=== PATIENT | female | born 1965 | race Caucasian/White ===

== ENCOUNTER → 2017-01-10 | Outpatient (CLI) | payer BC ==
[~2017-01-10] MED LIST: BUPRTAB PO; BUTA1CAP PO; CETI10TA84 PO; DIVA500T5 PO; DOXY100C76 PO; ESTR0.02 TD; LSN5 PO; MDRDP21 PO; MULT1CHW32 PO; ONDA4TAB10 SL; POTA1080 PO; TOPI50TA16 PO; TPRSR/25 PO
[2017-01-10 17:43] LABS: BASO % 0.9 %; BASO ABS # 0.06 K/uL (0-0.2); COMPLETE YES; EOS % 2.4 %; HEMATOCRIT 41.8 % (37-47); IG% 0.5 %; LYMPH % 35.3 %; LYMPH ABS # 2.24 K/uL (1.2-3.4); MEAN CELL VOLUME 94.1 fL (80-100); MEAN CORPUSCULAR HEMOGLOBIN 31.8 pg (25-34); MEAN CORPUSCULAR HGB CONC 33.7 g/dl (32-36); MEAN PLATELET VOLUME 11.2 fL (7.4-10.4); MONO % 12.1 %; NEUT % 48.8 %; PLATELET COUNT 173 K/uL (130-400); RED BLOOD COUNT 4.44 M/uL (4.2-5.4); WHITE BLOOD COUNT 6.34 K/uL (4.8-10.8)
[2017-01-10 17:58] LABS: ALT/SGPT 21 U/L (12-78); BLOOD UREA NITROGEN 15 mg/dl (7-18); BUN/CREATININE RATIO 19.6 (10-20); CALCIUM 9.5 mg/dl (8.5-10.1); CARBON DIOXIDE 29 mmol/L (21-32); CHLORIDE 103 mmol/L (98-107); CHOLESTEROL 174 mg/dl (0-200); CREATININE 0.78 mg/dl (0.60-1.20); GLUCOSE 77 mg/dl (70-99); POTASSIUM 4.8 mmol/L (3.5-5.1); SODIUM 141 mmol/L (136-145)
[2017-01-10 18:08] LABS: ALB/GLOB RATIO 1.4 (0.9-2); ALKALINE PHOSPHATASE 71 U/L (45-117); AST/SGOT 16 U/L (15-37); CHOLESTEROL/HDL RATIO 2.3; HDL CHOLESTEROL 77 mg/dl; LDL CHOLESTEROL CALCULATED 87 mg/dl; TRIGLYCERIDES 49 mg/dl (0-150); VERY LOW DENSITY LIPOPROT CALC 10 mg/dl
== END | disposition home or self-care (01) ==
LOC: C.LABBFT 15:08
PROVIDERS: ATTEND Internal Medicine
DX: I42.9 Cardiomyopathy, unspecified (principal)

== ENCOUNTER → 2017-01-13 | Outpatient (CLI) | payer BC | END | disposition home or self-care (01) | LOC: C.PAPS 10:43 | PROVIDERS: ATTEND Obstetrics & Gynecology | DX: Z01.419 Encounter for gynecological examination (general) (routine) without abnormal findings (principal) ==

== ENCOUNTER 2017-05-08 07:06 | Emergency (ER) | payer BC ==
[~2017-05-08] VITALS: Ht 157.5 cm; Wt 76.4 kg
[~2017-05-08 07:06] MED LIST changes: -BUTA1CAP PO; -CETI10TA84 PO; -DIVA500T5 PO; -DOXY100C76 PO; -MDRDP21 PO; -ONDA4TAB10 SL
[2017-05-08 07:10] VITALS: O2SAT 100
[2017-05-08 07:11] VITALS: TEMP 36.7; Ht 157.5 cm; Wt 76.4 kg
[2017-05-08] MEDS ORDERED: MDRDP21 PO (07:43)
[2017-05-08] MEDS ORDERED: CETI10TA84 PO (07:44)
[2017-05-08] MEDS ORDERED: BUTA1CAP PO (07:47)
[2017-05-08] MEDS ORDERED: DIVA500T5 PO (07:47)
[2017-05-08] MEDS ORDERED: ONDANSETRON INJ 2 MG/ML 2 ML VIAL IV STA (07:53)
[2017-05-08] MEDS ORDERED: CEFTRIAXONE SOD INJ 1 GM ADDVIAL IV STA (07:53)
[2017-05-08] MEDS ORDERED: SODIUM CHLORIDE 0.9% 1000ML 1,000 ML IV STA (07:53)
[2017-05-08] MEDS ORDERED: KETOROLAC TROMETHAMINE 30 MG/ML VIAL IV STA (07:53)
[2017-05-08] MEDS ORDERED: SODIUM CHLORIDE 0.9% 1000ML 2,000 ML IV STA (07:53)
[2017-05-08 08:07] LABS: BASO % 0.3 %; BASO ABS # 0.03 K/uL (0-0.2); COMPLETE YES; EOS % 1.4 %; HEMATOCRIT 45.1 % (37-47); IG% 0.2 %; LYMPH % 21.2 %; LYMPH ABS # 1.88 K/uL (1.2-3.4); MEAN CELL VOLUME 92.8 fL (80-100); MEAN CORPUSCULAR HEMOGLOBIN 31.9 pg (25-34); MEAN CORPUSCULAR HGB CONC 34.4 g/dl (32-36); MEAN PLATELET VOLUME 9.8 fL (7.4-10.4); MONO % 12.3 %; NEUT % 64.6 %; PLATELET COUNT 188 K/uL (130-400); RED BLOOD COUNT 4.86 M/uL (4.2-5.4); WHITE BLOOD COUNT 8.87 K/uL (4.8-10.8)
[2017-05-08 08:14] LABS: PROTHROMBIN TIME (PATIENT) 10.8 SECONDS (9.0-12.0)
--- NOTE | 2017-05-08 08:34 | DIAGNOSTIC IMAGING REPORT ---
CT HEAD WITHOUT CONTRAST (CT) CLINICAL HISTORY: HEADACHE x6 days, L BELLS PALSY LEFT FACIAL WEAKNESS. COMPARISON STUDY: 09/12/2008 TECHNIQUE: Axial CT of the brain is performed from the vertex to the skull base. IV contrast was not administered for this examination. CT DOSE: 644.98 mGy.cm FINDINGS: No intra or extra-axial mass lesions are visualized. There is no CT evidence of acute cortical infarction. There is no evidence of midline shift. There is no acute hemorrhage. No calvarial fractures are visualized. There are minimal white matter hypodensities likely on a small vessel basis. There is no evidence of pathologic ventricular dilatation. There is no evidence of acute sinusitis IMPRESSION: No acute intracranial findings Electronically signed by: Ivan Ramos M.D. 05/08/2017 8:33 AM Dictated Date/Time: 05/08/2017 8:26 AM
[2017-05-08 08:36] LABS: THYROID STIMULATING HORMONE 0.544 uIu/ml (0.300-4.500)
[2017-05-08 08:37] LABS: ALB/GLOB RATIO 0.9 (0.9-2); BUN/CREATININE RATIO 8.7 (10-20); CREATININE 0.97 mg/dl (0.60-1.20)
[2017-05-08 08:43] LABS: POTASSIUM 3.5 mmol/L (3.5-5.1)
[2017-05-08 08:59] LABS: LYME DISEASE AB IGG NEG (NEG)
[2017-05-08 09:05] LABS: LYME DISEASE AB IGM EQUIVOCAL (NEG)
[2017-05-08] MEDS ORDERED: PROCHLORPERAZINE 5 MG/ML 2 ML VIAL IV STA (09:39)
[2017-05-08] MEDS ORDERED: DiphenhydrAMINE HCL 50 MG/ML VIAL IV STA (09:39)
[2017-05-08] MEDS ORDERED: FENTANYL CITRATE INJ 50 MCG/1 ML 2 ML VIAL IV STA (09:39)
[2017-05-08] MEDS ORDERED: DOXY100C76 PO (10:58)
[2017-05-08] MEDS ORDERED: ONDA4TAB10 SL (11:00)
--- NOTE | 2017-05-08 11:00 | EMERGENCY ROOM VISIT NOTE ---
History First contact with patient: 07:15 Chief Complaint: NEURO SYMPTOMS Stated Complaint: LEFT SIDE OF FACE IS NUMB,ACHE ALL OVER,MARTINEZ X 6DAYS Nursing Triage Summary: Patient reports frontal headache for approx 6 days noticed yesterday that her face is drooping on the left side. Patient also c/o body aches for a couple days and red area on top of the right foot. History of Present Illness Patient is a 52-year-old white female with past medical history significant for hypertension, depression and migraines who presents emergency department for evaluation of a headache 1 week, with associated left-sided facial weakness times one day. Patient reports that she developed a stabbing left frontal headache about 6 days ago. She had associated nausea and vomiting, and thought that it was her typical migraine. She used her usual medications including Topamax, ibuprofen, and sinus medications, but they did not provide her with any relief. She called her neurologist and was started on a tapering course of steroids, again which did not change her headache. She states the headache became more generalized, and she noted generalized body and muscle aches, continued nausea, and joint pain. She had chills, felt generally weak, but denied any fever. She noticed yesterday that she could not keep her mouth closed to rinse with mouthwash and that it was squirting out of the left side of her mouth. She then also noticed weakness in the left side of her face, and states that it feels numb. She has a sensation of fullness in the left throat, but denies any difficulty breathing or swallowing. She has had difficulty eating and drinking normally due to the weakness in her face. Patient also notes that she has had a red, slightly tender rash on the dorsum of her right foot for about a week. She is outside frequently playing with her dogs, and participated in an exercise class, but denies any specific injury or trauma. She saw her PCP last week who thought the area was a bruise. She has been able to walk and bear weight. She denies any posterior neck pain or stiffness. No abdominal pain or diarrhea. No urinary symptoms. Review of Systems Review of systems as per HPI. All other systems reviewed were negative. 10 systems reviewed. Past Medical/Surgical History Medical Problems: (1) Calculus Of Kidney (2) Depression (3) Hydronephrosis (4) Hypertension Nos (5) LBBB (left bundle branch block) (6) Migraine Unspecified W/O Intract Mgrn W/O Status Migrainosus (7) Renal colic (8) Ureteral stone with hydronephrosis Electronic medical records are reviewed and summarized as above/below. See Problem List. Social History Smoking Status: Never Smoker Alcohol Use: none Drug Use: none Marital Status: Housing Status: lives with significant other Occupation Status: employed Current/Historical Medications Scheduled Bupropion Hcl (Wellbutrin Xl), 150 MG PO QAM Wrhgrlpmse-Fwucqagwsbzpv-Xixuz (Zebutal 50-325-40 mg), 1 CAP PO UD Cetirizine (Zyrtec), 10 MG PO DAILY Divalproex Sodium (Depakote Delay Rel), 500 MG PO BID Doxycycline Monohydrate (Monodox), 100 MG PO BID Estradiol (Estradiol Transdermal System), 1 PATCH TD WK Lisinopril (Lisinopril), 5 MG PO HS Methylprednisolone (Methylprednisolone Dose P), 4 MG PO UD Metoprolol Succinate (Metoprolol Succinate ER), 25 MG PO HS Scheduled PRN Ondasetron Odt (Zofran Odt), 4 MG SL Q6H PRN for Nausea or Vomiting Allergies Coded Allergies: Ciprofloxacin (Verified Allergy, Unknown, REDDENED/ RASH AT IV SITE, ) Physical Exam Vital Signs Date Time Temp Pulse Resp B/P (MAP) Pulse Ox O2 Delivery O2 Flow Rate FiO2 05/08/17 11:48 79 17 121/74 98 05/08/17 11:00 56 05/08/17 10:21 61 15 128/85 93 Room Air 05/08/17 08:22 65 20 129/81 100 Room Air 05/08/17 07:28 71 05/08/17 07:11 36.7 81 18 151/83 100 Room Air 05/08/17 07:10 100 Room Air Physical Exam CONSTITUTIONAL: Patient is a well-appearing 52-year-old white female who is awake and alert and in no acute distress. HEENT: Normocephalic, atraumatic. Pupils equal, round, reactive to light and accommodation. EOMs intact without nystagmus. Sclera are anicteric.Tympanic membranes intact, with normal landmarks. External canals are clear. No hemotympanum or Beal sign. Oral and nasopharynx are clear. No CSF rhinorrhea. Mucous membranes are moist. NECK: Supple, nontender, no lymphadenopathy. Full range of motion. HEART: Regular rate and rhythm, with normal S1 and S2, no murmur or gallop or rub is heard. LUNGS: Breath sounds equal and clear to auscultation without wheezes, rales, or rhonchi heard. ABDOMEN: Bowel sounds are present. Abdomen is soft, nontender and nondistended. SKIN: Examination of the dorsum of the right foot show a circular, erythematous rash, nonblanching, extending into the third and fourth toes which are slightly swollen. It is slightly warm to the touch, not overtly cellulitic. No lymphangitic streaking. No fluctuance appreciated. EXTREMITIES: No cyanosis, edema, joint tenderness or swelling. No deformity. NEUROLOGICAL: Alert and oriented x4. Cranial nerves 2 through 6, 8 through 12, sensation and strength grossly intact. She has left-sided cranial nerve VII defect, she is able to close the eye, but cannot keep it closed against resisting,, raise her forehead, has loss of the nasolabial crease on the left. She reports diminished sensation to light touch over the left side of the face. Gait is normal. Patient is able to toe, heel and tandem walk without difficulty. Negative Romberg, and pronator drift. Finger to nose, finger to finger and rapid alternating movements are intact. Immediate, recent and remote memories are intact. Concentration is normal. Medical Decision & Procedures ER Provider Diagnostic Interpretation: CT HEAD WITHOUT CONTRAST (CT) CLINICAL HISTORY: HEADACHE x6 days, L BELLS PALSY LEFT FACIAL WEAKNESS. COMPARISON STUDY: 09/12/2008 TECHNIQUE: Axial CT of the brain is performed from the vertex to the skull base. IV contrast was not administered for this examination. CT DOSE: 644.98 mGy.cm FINDINGS: No intra or extra-axial mass lesions are visualized. There is no CT evidence of acute cortical infarction. There is no evidence of midline shift. There is no acute hemorrhage. No calvarial fractures are visualized. There are minimal white matter hypodensities likely on a small vessel basis. There is no evidence of pathologic ventricular dilatation. There is no evidence of acute sinusitis IMPRESSION: No acute intracranial findings Laboratory Results 05/08/17 07:35 Red Blood Count 4.86, Mean Corpuscular Volume 92.8, Mean Corpuscular Hemoglobin 31.9, Mean Corpuscular Hemoglobin Concent 34.4, Mean Platelet Volume 9.8, Neutrophils (%) (Auto) 64.6, Lymphocytes (%) (Auto) 21.2, Monocytes (%) (Auto) 12.3, Eosinophils (%) (Auto) 1.4, Basophils (%) (Auto) 0.3, Neutrophils # (Auto ) 5.73, Lymphocytes # (Auto) 1.88, Monocytes # (Auto) 1.09, Eosinophils # (Auto ) 0.12, Basophils # (Auto) 0.03 05/08/17 07:35 Test 05/08/17 07:21 05/08/17 07:35 Bedside Glucose 113 mg/dl (70-90) White Blood Count 8.87 K/uL (4.8-10.8) Red Blood Count 4.86 M/uL (4.2-5.4) Hemoglobin 15.5 g/dL (12.0-16.0) Hematocrit 45.1 % (37-47) Mean Corpuscular Volume 92.8 fL (80-100) Mean Corpuscular Hemoglobin 31.9 pg (25-34) Mean Corpuscular Hemoglobin Concent 34.4 g/dl (32-36) Platelet Count 188 K/uL (130-400) Mean Platelet Volume 9.8 fL (7.4-10.4) Neutrophils (%) (Auto) 64.6 % Lymphocytes (%) (Auto) 21.2 % Monocytes (%) (Auto) 12.3 % Eosinophils (%) (Auto) 1.4 % Basophils (%) (Auto) 0.3 % Neutrophils # (Auto) 5.73 K/uL (1.4-6.5) Lymphocytes # (Auto) 1.88 K/uL (1.2-3.4) Monocytes # (Auto) 1.09 K/uL (0.11-0.59) Eosinophils # (Auto) 0.12 K/uL (0-0.5) Basophils # (Auto) 0.03 K/uL (0-0.2) RDW Standard Deviation 43.0 fL (36.4-46.3) RDW Coefficient of Variation 12.7 % (11.5-14.5) Immature Granulocyte % (Auto) 0.2 % Immature Granulocyte # (Auto) 0.02 K/uL (0.00-0.02) Prothrombin Time 10.8 SECONDS (9.0-12.0) Prothromb Time International Ratio 1.0 (0.9-1.1) Activated Partial Thromboplast Time 26.2 SECONDS (21.0-31.0) Partial Thromboplastin Ratio 1.0 Anion Gap 10.0 mmol/L (3-11) Est Creatinine Clear Calc Drug Dose 63.5 ml/min Estimated GFR () 76.7 Estimated GFR (Non- 66.2 BUN/Creatinine Ratio 8.7 (10-20) Calcium Level 9.0 mg/dl (8.5-10.1) Total Bilirubin 0.2 mg/dl (0.2-1) Aspartate Amino Transf (AST/SGOT) 13 U/L (15-37) Alanine Aminotransferase (ALT/SGPT) 31 U/L (12-78) Alkaline Phosphatase 71 U/L (45-117) Total Protein 7.0 gm/dl (6.4-8.2) Albumin 3.3 gm/dl (3.4-5.0) Globulin 3.7 gm/dl (2.5-4.0) Albumin/Globulin Ratio 0.9 (0.9-2) Lipase 152 U/L (73-393) Thyroid Stimulating Hormone (TSH) 0.544 uIu/ml (0.300-4.500) Lyme Disease IgG Antibody NEG (NEG) Medications Administered Medications (Trade) Dose Ordered Sig/Adilene Route Start Time Stop Time Status Last Admin Dose Admin Sodium Chloride 2,000 ml @ 999 mls/hr Q2H1M STAT IV 05/08/17 07:53 05/08/17 09:53 DC 05/08/17 08:09 999 MLS/HR Sodium Chloride 1,000 ml @ 250 mls/hr Q4H STAT IV 05/08/17 07:53 05/08/17 11:52 DC 05/08/17 08:52 250 MLS/HR Ketorolac Tromethamine (Toradol Inj) 30 mg NOW STAT IV 05/08/17 07:53 05/08/17 07:58 DC 05/08/17 08:07 30 MG Ondansetron HCl (Zofran Inj) 4 mg NOW STAT IV 05/08/17 07:53 05/08/17 07:58 DC 05/08/17 08:06 4 MG Ceftriaxone Sodium (Rocephin Inj) 1 gm NOW STAT IV 05/08/17 07:53 05/08/17 07:58 DC 05/08/17 08:08 1 GM Prochlorperazine Edisylate (Compazine Inj) 10 mg NOW STAT IV 05/08/17 09:39 05/08/17 09:40 DC 05/08/17 10:00 10 MG Diphenhydramine HCl (Benadryl Inj) 25 mg NOW STAT IV 05/08/17 09:39 05/08/17 09:40 DC 05/08/17 10:00 25 MG Fentanyl Citrate (Fentanyl Inj) 50 mcg NOW STAT IV 05/08/17 09:39 05/08/17 09:40 DC 05/08/17 10:01 50 MCG ECG Indication: weakness Rate (beats per minute): 69 Rhythm: normal sinus Findings: LBBB (chronic), no acute ischemic change, no ectopy Change: no significant change ED Course The patient was seen and assessed as above. Her old records were reviewed. History and physical exam were reviewed with attending physician and ED workup was agreed upon. IV lock was initiated and laboratory studies were collected. EKG was performed and was as noted above. She was hydrated with normal saline solution, and initially was medicated with Zofran 4 mg and Toradol 30 mg IV. Laboratory studies were performed including CBC with differential, coags, TSH, CMP and Lyme screen. The rash on her foot did appear consistent with an erythema migrans, and given her left facial nerve palsy and other generalized symptoms, I was suspicious for Lyme disease and therefore did treat her with Rocephin 1 g IV. Laboratory studies demonstrated a normal white count and H&H. No left shift or bandemia. Coags and electrolytes were within normal limits. Point of care BSG was 113. Lipase is not indicative of acute pancreatitis. TSH is indicative of a euthyroid state. Lyme IgG was negative, Lyme IgM is equivocal and Western blot is pending. Head CT was performed given the facial weakness, and was negative for any acute intracranial bleed, mass or process. The patient continued to complain of headache and nausea and was given fentanyl 50 g IV, Compazine 10 mg IV and Benadryl 25 mg IV with good relief of her symptoms. All laboratory and diagnostic imaging studies were reviewed with attending physician, and discussed with the patient and her at length. I suspect Lyme disease, with associated left seventh cranial nerve (Mcfadden's) palsy. Differential diagnoses also entertained included cellulitis, abscess, superficial thrombophlebitis, CVA/TIA, among others. The patient will be placed on doxycycline. Eye care was reviewed given the left-sided facial weakness. She was educated on the worrisome signs or symptoms for which she should return to the emergency department, and was advised to follow-up with her PCP in one week for recheck. Patient was discharged home in good condition her was driving. She rated her pain a 0/10 at discharge. Blood pressure screening : Patient was found to have normal blood pressure on screening and does not require follow-up. Medication reconciliation: I attest that I have personally reviewed the patient' s current medication list. Medical Decision See Emergency Department course. Impression Primary Impression: Left-sided Mcfadden's palsy Additional Impression: Erythema migrans (Lyme disease) Departure Information Prescriptions Ondasetron Odt (ZOFRAN ODT) 4 Mg Tab 4 MG SL Q6H Y for Nausea or Vomiting, #20 TAB Prov: Ivory Mclean PA 05/08/17 Doxycycline Monohydrate (Monodox) 100 Mg Cap 100 MG PO BID, #21 CAP Prov: Ivory Mclean PA 05/08/17 Referrals Donaldo Hsieh M.D. (PCP) Patient Instructions My [facility] Additional Instructions DO NOT drive, drink alcohol, operate machinery, or perform dangerous activities today. You were given medications in the ER that can affect your ability to safely function or operate a vehicle. Rest today in a quiet, peaceful, dark environment and get a full 8-10 hrs of sleep tonight. Avoid loud noises, smoke/smoking, alcohol, bright lights, stress, or physical exertion today to minimize the chance the headache may return. Continue current medications. Zofran(odansetron) tablets 4mg: Take one and allow it to dissolve in your mouth every four to six hours as needed for nausea or vomiting. Doxycycline 100mg: Take one pill twice daily for 21 days for your infection. Take with food, but avoid dairy. Avoid prolonged sun exposure since this medication makes you temporarily more susceptible to sunburns. All antibiotics can cause diarrhea. If this occurs and you feel worse or it does not resolve in 1-2 days follow up with your doctor or return to the Emergency Department as this could be signs of serious underlying problems. Any medication can cause an allergic reaction, stop the pills immediately and return to the ER for rash, hives, breathing difficulties, or swelling. Ibuprofen(Motrin, Advil) may be used for fever or pain. Use 600mg every six hours as needed. Take with food. Avoid using more than 2400mg in a 24 hour period. Do not use 2400mg per day for more than three consecutive days without physician direction. Prolonged inappropriate use can lead to stomach upset or ulcers. This is available over the counter and typically comes in 200mg tablets. (AND/OR) Acetaminophen(Tylenol) may be used for fever or pain. Use 1000mg every eight hours as needed. Avoid using more than 3000mg in a 24 hour period. This is available over the counter. Lubricating eye drops as needed. Apply lubricating eye ointment at bedtime and gently secure the eye closed with paper tape. Read all the package inserts or medication information paperwork provided. If you have any questions or concerns call your primary provider, pharmacist or the ER for assistance. Return to the ER for severe pain, persistent fevers, spreading redness, passing out, worsening headache, vision problems, neck stiffness/pain, vomiting, worsening of your condition, or as needed. Follow up with your primary physician in 2-3 days for a recheck of your current condition. Problem Qualifiers
[2017-05-08 11:48] VITALS: BP 121/74; PULSE 79; O2SAT 98
[2017-05-11 08:33] LABS: 18KDIGG BAND NONREACTIVE (NONREACTIVE); 23KDIGG BAND NONREACTIVE (NONREACTIVE); 23KDIGM BAND REACTIVE (NONREACTIVE); 28KDIGG BAND NONREACTIVE (NONREACTIVE); 30KDIGG BAND NONREACTIVE (NONREACTIVE); 39KDIGG BAND NONREACTIVE (NONREACTIVE); 39KDIGM BAND NONREACTIVE (NONREACTIVE); 41KDIGG BAND NONREACTIVE (NONREACTIVE); 41KDIGM BAND REACTIVE (NONREACTIVE); 45KDIGG BAND NONREACTIVE (NONREACTIVE); 58KDIGG BAND NONREACTIVE (NONREACTIVE); 66KDIGG BAND NONREACTIVE (NONREACTIVE); 93KDIGG BAND NONREACTIVE (NONREACTIVE)
== END 2017-05-08 11:50 | disposition home or self-care (01) ==
LOC: C.EDB 07:08 → C.EDA 11:50
DX: G51.0 Bell's palsy (principal); A69.20 Lyme disease, unspecified; F32.9 Major depressive disorder, single episode, unspecified; N13.30 Unspecified hydronephrosis; I10 Essential (primary) hypertension

== ENCOUNTER → 2017-06-02 | Outpatient (CLI) | payer BC ==
[~2017-06-02] MED LIST changes: +BUTA1CAP PO; +CETI10TA84 PO; +DIVA500T5 PO; +DOXY100C76 PO; +MDRDP21 PO; -MULT1CHW32 PO; +ONDA4TAB10 SL; -POTA1080 PO; -TOPI50TA16 PO
--- NOTE | 2017-06-02 14:25 | DIAGNOSTIC IMAGING REPORT ---
RIGHT FOOT MIN 3 VIEWS ROUTINE CLINICAL HISTORY: Right foot pain. Lyme disease. COMPARISON: None FINDINGS: Tarsometatarsal joints are intact. There is no acute fracture or suspicious lesion within the right foot. Lateral view demonstrates apparent soft tissue swelling. There is mild hallux valgus deformity. There is minimal joint space narrowing with osteophytosis of the right first metatarsophalangeal joint. There are few juxta-articular lucencies within the right first metatarsal head. These have sclerotic margins. No definite erosions are present. IMPRESSION: 1. 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 2. No acute fracture. Electronically signed by: Faisal Mccauley M.D. 06/02/2017 2:23 PM Dictated Date/Time: 06/02/2017 2:21 PM
== END | disposition home or self-care (01) ==
LOC: C.RAD 13:55
PROVIDERS: ATTEND Physician Assistant Medical
DX: A69.20 Lyme disease, unspecified (principal)

== ENCOUNTER → 2017-06-19 | Outpatient (CLI) | payer BC ==
--- NOTE | 2017-06-19 13:32 | DIAGNOSTIC IMAGING REPORT ---
BONE SCAN 3 PHASE LIMITED CLINICAL HISTORY: 52 years-old Female presenting with foot pain, concern for Lyme disease. TECHNIQUE: Planar anterior and posterior imaging of the feet was performed in the angiographic, blood pool, and 3 hour delayed phases after administration of radiotracer. Radiotracer: 27 mCi Tc-99m MDP. COMPARISON: Correlation made to plain radiographs of the right foot from 06/02/2017. FINDINGS: Increased radiotracer in the right forefoot on initial angiographic flow images. Blood pool phase demonstrates focal activity localizing to the heads of the third and fourth metatarsals and third and fourth toes. Delayed imaging demonstrates mild asymmetry of radiotracer uptake in the right foot diffusely without significant focality. IMPRESSION: 1. Overall asymmetric radiotracer uptake in the right foot, predominantly the forefoot, on angiographic and blood pool phases. This could represent cellulitis in the appropriate clinical setting. The absence of focal radiotracer uptake on delayed imaging is not consistent with osteomyelitis or septic arthritis. Electronically signed by: Tanmay España M.D. 06/19/2017 1:31 PM Dictated Date/Time: 06/19/2017 1:20 PM
== END | disposition home or self-care (01) ==
LOC: C.NUCL 09:41
PROVIDERS: ATTEND Physician Assistant Medical
DX: M79.671 Pain in right foot (principal); R93.7 Abnormal findings on diagnostic imaging of other parts of musculoskeletal system

== ENCOUNTER → 2017-06-21 | Outpatient (CLI) | payer BC ==
--- NOTE | 2017-06-21 18:45 | DIAGNOSTIC IMAGING REPORT ---
RIGHT LOWER EXTREMITY VENOUS DOPPLER HISTORY: PAIN AND SWELLING IN RIGHT LEG; R/O DVT Right COMPARISON STUDY: None. FINDINGS: There is normal compressibility, flow, and augmentation within the right lower extremity deep venous system. Dorsal subcutaneous edema within the foot. IMPRESSION: No DVT within the right lower extremity. Dorsal subcutaneous edema within the foot. Electronically signed by: Mitesh Ospina M.D. 06/21/2017 6:43 PM Dictated Date/Time: 06/21/2017 6:42 PM
== END | disposition home or self-care (01) ==
LOC: C.ULTR 17:22
PROVIDERS: ATTEND Physician Assistant Medical
DX: M79.89 Other specified soft tissue disorders (principal); R60.0 Localized edema

== ENCOUNTER → 2017-09-23 | Outpatient (CLI) | payer BC ==
[2017-09-23 11:57] LABS: BASO % 0.5 %; BASO ABS # 0.04 K/uL (0-0.2); COMPLETE YES; HEMATOCRIT 44.1 % (37-47); IG% 0.3 %; LYMPH % 33.1 %; LYMPH ABS # 2.43 K/uL (1.2-3.4); MEAN CELL VOLUME 92.5 fL (80-100); MEAN CORPUSCULAR HEMOGLOBIN 31.4 pg (25-34); MEAN PLATELET VOLUME 10.5 fL (7.4-10.4); MONO % 7.9 %; NEUT % 56.2 %; PLATELET COUNT 204 K/uL (130-400); RED BLOOD COUNT 4.77 M/uL (4.2-5.4); WHITE BLOOD COUNT 7.34 K/uL (4.8-10.8)
[2017-09-23 12:21] LABS: ALT/SGPT 21 U/L (12-78); AST/SGOT 13 U/L (15-37); BLOOD UREA NITROGEN 14 mg/dl (7-18); BUN/CREATININE RATIO 17.2 (10-20); CALCIUM 9.1 mg/dl (8.5-10.1); CARBON DIOXIDE 29 mmol/L (21-32); CHLORIDE 105 mmol/L (98-107); CREATININE 0.81 mg/dl (0.60-1.20); GLUCOSE 79 mg/dl (70-99); POTASSIUM 4.5 mmol/L (3.5-5.1); SODIUM 139 mmol/L (136-145)
[2017-09-23 12:24] LABS: ALB/GLOB RATIO 1.3 (0.9-2); ALKALINE PHOSPHATASE 100 U/L (45-117)
== END | disposition home or self-care (01) ==
LOC: C.LAB 10:02
PROVIDERS: ATTEND Physician Assistant
DX: G43.909 Migraine, unspecified, not intractable, without status migrainosus (principal)

== ENCOUNTER → 2017-11-13 | Outpatient (CLI) | payer BC ==
[~2017-11-13] MED LIST changes: -DOXY100C76 PO; -ONDA4TAB10 SL
== END | disposition home or self-care (01) ==
LOC: C.LABBFT 15:28
PROVIDERS: ATTEND Physician Assistant Medical
DX: R53.83 Other fatigue (principal)

== ENCOUNTER 2018-01-29 11:43 | Emergency (ER) | payer BC ==
[~2018-01-29] VITALS: Ht 157.5 cm; Wt 87.4 kg
[2018-01-29 12:01] VITALS: TEMP 36.6; Ht 157.5 cm; Wt 87.4 kg
[2018-01-29] MEDS ORDERED: ONDANSETRON INJ 2 MG/ML 2 ML VIAL IV STA (12:13)
[2018-01-29] MEDS ORDERED: SODIUM CHLORIDE 0.9% 1000ML 500 ML IV ONE (12:13)
[2018-01-29] MEDS ORDERED: MoRPHine SULFATE 4 MG/ML 1 ML CARP\\VIAL IV STA (12:41)
[2018-01-29 13:11] LABS: HEMATOCRIT 44.9 % (37-47); HEMOGLOBIN 15.5 g/dL (12.0-16.0); MEAN CELL VOLUME 90.5 fL (80-100); MEAN CORPUSCULAR HEMOGLOBIN 31.3 pg (25-34); MEAN CORPUSCULAR HGB CONC 34.5 g/dl (32-36); MEAN PLATELET VOLUME 9.9 fL (7.4-10.4); PLATELET COUNT 228 K/uL (130-400); RED CELL DISTRIBUTION WIDTH CV 13.3 % (11.5-14.5); WHITE BLOOD COUNT 8.86 K/uL (4.8-10.8)
[2018-01-29 13:25] LABS: ALBUMIN 4.1 gm/dl (3.4-5.0); ALT/SGPT 39 U/L (12-78); BLOOD UREA NITROGEN 18 mg/dl (7-18); CARBON DIOXIDE 24 mmol/L (21-32); CREATININE 0.88 mg/dl (0.60-1.20); GLUCOSE 79 mg/dl (70-99); LIPASE 223 U/L (73-393); POTASSIUM 3.9 mmol/L (3.5-5.1); SODIUM 137 mmol/L (136-145)
[2018-01-29 13:28] LABS: ALKALINE PHOSPHATASE 112 U/L (45-117); AST/SGOT 23 U/L (15-37); TOTAL PROTEIN 7.2 gm/dl (6.4-8.2)
--- NOTE | 2018-01-29 13:34 | DIAGNOSTIC IMAGING REPORT ---
CT OF THE ABDOMEN AND PELVIS WITHOUT CONTRAST, STONE PROTOCOL CLINICAL HISTORY: Right flank pain. COMPARISON STUDY: CT of the abdomen and pelvis August 21, 2015 and abdominal ultrasound October 07, 2015. TECHNIQUE: Helical axial images of the abdomen and pelvis were obtained without IV or oral contrast according to renal stone protocol. A dose lowering technique was utilized adhering to the principles of ALARA. FINDINGS: Multiple bilateral renal calculi measure up to 7 mm. There is a suspected left renal cyst. There are no ureteral calculi and there is no hydronephrosis. A tiny suspected gallstone is noted. This is calcified. There is no evidence for acute cholecystitis. Evaluation of the abdomen and pelvis is suboptimal on this unenhanced exam. The liver, spleen, adrenal glands and pancreas are normal. The caliber and wall thickness of small and large bowel are normal. The appendix is normal. There is no lymphadenopathy. There is no ascites. No suspicious osseous lesions are present. Pelvic calcifications reflect phleboliths. The uterus is surgically absent. IMPRESSION: 1. Bilateral nephrolithiasis. No ureteral calculi or hydronephrosis. 2. No acute process within the abdomen or pelvis on unenhanced exam. Normal appendix. No bowel obstruction. 3. Cholelithiasis. No evidence for acute cholecystitis. Electronically signed by: Faisal Mccauley M.D. 01/29/2018 1:33 PM Dictated Date/Time: 01/29/2018 1:27 PM
[2018-01-29 14:56] VITALS: BP 127/77; PULSE 71; O2SAT 99
--- NOTE | 2018-01-29 21:42 | EMERGENCY ROOM VISIT NOTE ---
ED Visit Note First contact with patient: 12:34 Chief Complaint: Right flank pain. History of Present Illness: is a 52 year-old white female who ambulates into the ED complaining of right flank pain. Historically patient reports she is had previous pyelonephritis and kidney stones; she reports this feels like her previous kidney stones. Additionally she reports she is status post hysterectomy and believes when she had her hysterectomy she had an appendectomy. Patient reports a acute onset of right flank pain that started at 4 AM this morning. Since that time her pain has been constant. She describes her discomfort as a sharp sensation. Her pain is radiating around the abdomen and into the epigastric area and also radiating down into the right lower quadrant area. She rates her discomfort 7/10. Her pain worsens when she is moving at the waist and minimally on palpation in the right upper quadrant and right lower quadrant and percussion of the right CVA area. She has not identified any alleviating factors related to the pain. She does report she took 2 Aleve tablets approximately 10 AM this morning with minimal relief of her discomfort. Associated with her pain she reports she has been sweaty, she has been nauseated but has not vomited and also reports an increase in urinary frequency but no franklin burning and some mild yellowish vaginal discharge. Additionally she does report yesterday she had a few small episodes of diarrhea but that has not returned today. Patient denies fevers, chills, skin eruptions, skin color changes, upper respiratory tract symptoms, shortness of breath, chest pain, constipation, rectal bleeding, black/tarry stools, hematuria, vaginal bleeding. Review of Systems: As noted above in history of present illness. All body systems were reviewed and found to be negative as noted above. Past Medical History: As previously noted and hypertension, migraine headaches, depression. Current Medications: Wellbutrin, estradiol, metoprolol, Zyrtec, Zebutal. Allergies to Medications: Ciprofloxacin. Social History: Patient is employed; she feels safe in her home environment; Physical Examination: Vital Signs: Date Time Temp Pulse Resp B/P (MAP) Pulse Ox O2 Delivery O2 Flow Rate FiO2 01/29/18 14:56 71 20 127/77 99 Room Air 01/29/18 14:00 80 18 103/62 96 Room Air 01/29/18 12:01 36.6 82 18 149/94 96 Room Air GENERAL: 52-year-old female in moderate distress due to pain, nontoxic-appearing , afebrile and hemodynamically stable. NEUROLOGICAL: Awake, alert and oriented to person, place and time. Answering questions appropriately and following commands. Normal gait. Good hand eye coordination. SKIN: Warm, moist and pink. No soft tissue eruptions or trauma noted. HEENT: Atraumatic and normocephalic. PERRLA. Sclera white and conjunctiva pink. Oral cavity moist and pink. Pharynx is nonerythematous or edematous. Speech normal. Trachea midline. No jugular venous distention. BACK: No tenderness over the bony spine. No tenderness throughout the paraspinous muscles. No decreased range of motion. Mild right sided CVA tenderness. THORAX: Lungs sounds are clear to auscultation and equal bilaterally with symmetrical chest wall. No wheezing, rales or rhonchi. HEART: Regular rate and rhythm. No gallops, rubs or murmurs are appreciated. ABDOMEN: Soft with mild tenderness in the epigastrium and right lower quadrant just inferior to McBurney's point. Positive bowel sounds in all quadrants. No guarding, rigidity or organomegaly. EXTREMITIES: Moves all extremities well on command and with purpose. All distal neurovascular statuses are intact and equal bilaterally. ED Course: Patient is assessed as noted above. Laboratory Testing: Test 01/29/18 12:45 01/29/18 12:50 Range/Units Urine Color YELLOW Urine Appearance CLEAR CLEAR Urine pH 6.0 4.5-7.5 Urine Specific [place] 1.013 1.000-1.030 Urine Protein NEG NEG Urine Glucose (UA) NEG NEG Urine Ketones NEG NEG Urine Occult Blood 1+ NEG Urine Nitrite NEG NEG Urine Bilirubin NEG NEG Urine Urobilinogen NEG NEG Urine Leukocyte Esterase SMALL NEG Urine WBC (Auto) 1-5 0-5 /hpf Urine RBC (Auto) 0-4 0-4 /hpf Urine Hyaline Casts (Auto) 0 0-5 /lpf Urine Epithelial Cells (Auto) 10-20 0-5 /lpf Urine Bacteria (Auto) NEG NEG White Blood Count 8.86 4.8-10.8 K/uL Red Blood Count 4.96 4.2-5.4 M/uL Hemoglobin 15.5 12.0-16.0 g/dL Hematocrit 44.9 37-47 % Mean Corpuscular Volume 90.5 80-100 fL Mean Corpuscular Hemoglobin 31.3 25-34 pg Mean Corpuscular Hemoglobin Concent 34.5 32-36 g/dl RDW Standard Deviation 44.0 36.4-46.3 fL RDW Coefficient of Variation 13.3 11.5-14.5 % Platelet Count 228 130-400 K/uL Mean Platelet Volume 9.9 7.4-10.4 fL Sodium Level 137 136-145 mmol/L Potassium Level 3.9 3.5-5.1 mmol/L Chloride Level 105 98-107 mmol/L Carbon Dioxide Level 24 21-32 mmol/L Anion Gap 8.0 3-11 mmol/L Blood Urea Nitrogen 18 7-18 mg/dl Creatinine 0.88 0.60-1.20 mg/dl Est Creatinine Clear Calc Drug Dose 75.0 ml/min Estimated GFR () 86.3 Estimated GFR (Non- 74.5 BUN/Creatinine Ratio 20.6 10-20 Random Glucose 79 70-99 mg/dl Calcium Level 9.0 8.5-10.1 mg/dl Total Bilirubin 0.3 0.2-1 mg/dl Direct Bilirubin < 0.1 0-0.2 mg/dl Aspartate Amino Transf (AST/SGOT) 23 15-37 U/L Alanine Aminotransferase (ALT/SGPT) 39 12-78 U/L Alkaline Phosphatase 112 45-117 U/L Total Protein 7.2 6.4-8.2 gm/dl Albumin 4.1 3.4-5.0 gm/dl Lipase 223 73-393 U/L Noncontrast Abdominal/Pelvic CT: Was reviewed by myself and read by the radiologist showing bilateral nephrolithiasis without ureteral calculi or hydronephrosis, no acute abdominal or pelvic process, no bowel obstruction, normal-appearing appendix, cholelithiasis without evidence of acute cholecystitis. Patient was initially hydrated with normal saline and received 4 mg of morphine IV and 4 mg of Zofran IV for her symptoms. Patient was reassessed multiple times during her stay in the emergency department. Patient's case was reviewed with Dr. Nunez; we agreed on diagnostic approach, treatment, disposition and plan. Patient was educated about today's findings and instructed on her treatment plan ; she verbalized understanding and agreement with this plan. Clinical Impression: Acute right flank pain. Decision-Making: Initially my differential diagnosis I considered ureter calculus, hepatitis, pancreatitis, cholecystitis, musculoskeletal disorder, pyelonephritis, constipation and other causes. Disposition: Patient discharged home in stable condition accompanied by her ; prior to departure she was reassessed and subjectively reported she was feeling much better and rated her discomfort 3/10. Plan: Patient was encouraged alternate ibuprofen and acetaminophen every 3 hours as needed for pain. Patient was encouraged to stay well-hydrated with increased clear fluids. Patient was encouraged to follow-up with family physician for recheck in 2-3 days. Patient was encouraged to return the ED for worsening pain, worsening nausea/ vomiting, bloody stools, fevers or any new/concerning symptoms.
== END 2018-01-29 15:08 | disposition home or self-care (01) ==
LOC: C.EDB 11:44
DX: R10.31 Right lower quadrant pain (principal); R10.11 Right upper quadrant pain; R11.0 Nausea; R35.0 Frequency of micturition; Z87.442 Personal history of urinary calculi; Z98.890 Other specified postprocedural states; Z88.1 Allergy status to other antibiotic agents; Z79.890 Hormone replacement therapy

== ENCOUNTER → 2018-02-13 | Outpatient (CLI) | payer BC ==
[~2018-02-13] MED LIST changes: -DIVA500T5 PO; -LSN5 PO; -MDRDP21 PO; +SINCALIDE INJ 1.7 MCG in SODIUM CHLORIDE 0.9% 100ML 100 ML IV ONE
--- NOTE | 2018-02-13 15:26 | DIAGNOSTIC IMAGING REPORT ---
HEPATOBILIARY EF IMAGING CLINICAL HISTORY: 52 years-old Female presenting with R10.11. TECHNIQUE: Dynamic imaging of the gallbladder was initiated 65 minutes after administration of 5.5 mCi of technetium 99m Choletec. Imaging was obtained every 5 minutes over a span of 40 minutes. 1.7 mcg of sincalide was injected 5 minutes prior to the start of imaging. The gallbladder ejection fraction was calculated. COMPARISON: 11/09/2015. FINDINGS: Hepatobiliary scan demonstrates normal radiotracer uptake by the liver and normal excretion into the common duct and gallbladder. Expected radiotracer activity within small bowel indicates an unobstructed common duct. The gallbladder subsequently demonstrates normal contraction with decreased radiotracer activity. Gallbladder ejection fraction measures 92%. Reference range: Unequivocally normal: Greater than 50% Unequivocally abnormal: Less than 35% IMPRESSION: 1. Normal gallbladder ejection fraction. No evidence of chronic cholecystitis. Electronically signed by: Tanmay España M.D. 02/13/2018 3:25 PM Dictated Date/Time: 02/13/2018 3:25 PM
== END | disposition home or self-care (01) ==
LOC: C.NUCL 12:15
PROVIDERS: ATTEND Nurse Practitioner
DX: R10.11 Right upper quadrant pain (principal)

== ENCOUNTER 2019-06-13 05:04 | Observation (INO) ==
--- NOTE | 2019-06-05 15:12 | Anesthesiology Consultation ---
Date of Service June 05, 2019 Assessment & Plan (1) Encounter for pre-operative examination: Chart Review Chart Review: Acceptable Risk for Surgery and Patient NOT seen in Pre Admission Testing History Surgery Operation Date: 06/13/19 07:00 Proposed Procedures p Laparoscopic Cholecystectomy - James Meza MD, FACS Height/Weight Height: 5 ft 2 in Weight: 88.904 kg Allergies Allergy/AdvReac Type Severity Reaction Status Date / Time Cipro Allergy Unknown REDDENED/ Verified 01/29/18 14:09 RASH AT IV SITE ciprofloxacin Allergy Unknown redness/rash Verified 06/05/19 15:12 at IV site Medications Home Medications Medication Instructions Recorded Confirmed Last Taken bupropion HCl 150 mg PO QAM 05/23/19 05/30/19 05/22/19 yrloysagxa-otmtdcnnhcduj-swje 1 tab PO UD 05/23/19 05/30/19 05/22/19 cetirizine 10 mg PO HS 05/23/19 05/30/19 05/22/19 estradiol 1 patch TOPICAL WK 05/23/19 05/30/19 05/20/19 metoprolol succinate 25 mg PO HS 05/23/19 05/30/19 05/22/19 ondansetron 4 mg PO Q6H PRN #15 tab 05/23/19 05/30/19 Unknown Past Medical History Medical History Migraines Depression Hx of Lyme disease Hx lyme disease + bells palsy (appears to date back to 2016 per records but no further details per RN phone interview) Kidney stone Left bundle branch block dating back to at least 2013 per chart review Past Surgical History Surgical History H/O: hysterectomy H/O lithotripsy History of cardiac cath 2012= no stents Hx of colonoscopy Social History Smoking Status: Never smoker Do You Dip or Chew Tobacco: No Hx Alcohol Use: Yes Alcohol type: wine alcohol intake frequency: holidays/special occasions only Hx Substance Use: No substance use type: does not use Testing Laboratory Results 05/23/19 WBC 7.02 H/H 14.1/41.5 PLATELETS 203 SODIUM 139 POTASSIUM 3.7 CHLORIDE 110 CO2 23 BUN 17 CREATININE 0.75 GLUCOSE 109 UA negative Electrocardiogram Date: 06/03/19 NSR at 77bpm. LBBB (dating back to at least 2013 per chart review; patient s/p ECHO 02/2017*) Echocardiogram Date: 03/01/17 LVEF 45-50%. Abnormal septal motion consistent with BBB. No significant valvular disease. No significant change compared to 07/2013 per ECHO report.
[2019-06-13] MEDS ORDERED: LR 15ML/HR IV SCH (06:00)
[2019-06-13] MEDS ORDERED: cefUROXime 1,500 MG in DEXTROSE 5% 100 ML IV SCH (06:00)
[2019-06-13] MEDS ORDERED: BUPIVACAINE 0.5 % 5 MG/1 ML MPF 30ML VIAL ONE (06:32)
--- NOTE | 2019-06-13 06:44 | History & Physical Bridge Note ---
Date of Service June 13, 2019 History & Physical Bridge Note I have examined the patient, reviewed the History & Physical and in the interval since the performance of the History & Physical I have noted the following changes of clinical significance: no changes noted
[2019-06-13] MEDS ORDERED: PROPOFOL IV EMULSION 10 MG/ML 20 ML VIAL IV ONE (06:46)
[2019-06-13] MEDS ORDERED: ePHEDrine sulfate 50 MG/ML AMP ONE (06:46)
[2019-06-13] MEDS ORDERED: GLYCOPYRROLATE 0.2 MG/ML VIAL ONE (06:46)
[2019-06-13] MEDS ORDERED: DEXAMETHASONE SOD INJ 4 MG/ML VIAL ONE (06:46)
[2019-06-13] MEDS ORDERED: ONDANSETRON INJ 2 MG/ML 2 ML VIAL ONE (06:46)
[2019-06-13] MEDS ORDERED: LIDOCAINE HCL 2% 2 ML VIAL/AMP(20MG/ML) INFIL ONE (06:46)
[2019-06-13] MEDS ORDERED: SUCCINYLCHOLINE CHLORIDE 20 MG/ML 10 ML VIAL ONE (06:46)
[2019-06-13] MEDS ORDERED: PHENYLEPHRINE HCL 10 MG/ML VIAL ONE (06:46)
[2019-06-13] MEDS ORDERED: NEOSTIGMINE METHYLSULFATE 5 MG/5 ML SYR ONE (06:46)
[2019-06-13] MEDS ORDERED: MIDAZOLAM HCL 1 MG/ML 2ML VIAL ONE (06:47)
[2019-06-13] MEDS ORDERED: fentaNYL citrate 100 MCG/2 ML VIAL ONE ×2 (06:47→07:59)
[2019-06-13] MEDS ORDERED: fentaNYL citrate 100 MCG/2 ML VIAL IV PRN (06:49)
[2019-06-13] MEDS ORDERED: ePHEDrine sulfate 50 MG/ML AMP IV PRN (06:49)
[2019-06-13] MEDS ORDERED: PROMETHAZINE HCL 6.25 MG in SODIUM CHLORIDE 0.9% 50 ML IV PRN (06:49)
[2019-06-13] MEDS ORDERED: ATROPINE SULFATE 0.1 MG/ML 10ML SYR IV PRN (06:49)
[2019-06-13] MEDS ORDERED: ONDANSETRON INJ 2 MG/ML 2 ML VIAL IV PRN (06:49)
--- NOTE | 2019-06-13 07:40 | Operative Report ---
Post Operative Report Pre & Post Diagnosis Operation Date: 06/13/19 07:00 Pre-Op Diagnosis: Biliary Colic, Cholithiasis Post-Op Diagnosis: Biliary Colic, Cholithiasis, Procedure Operation Date: 06/13/19 07:00 Actual Procedures p Laparoscopic Cholecystectomy(Not Applicable) - James Meza MD, FACS Surgeon James Meza MD, FACS Digital Data Analyst Drew Stafford Estimated Blood Loss 5 Findings Consistent with Post-Op Diagnosis Specimens gallbladder Description of Procedure see dictation I attest to the content of the Intraoperative Record and any orders documented therein. Any exceptions are noted below.
[2019-06-13] MEDS ORDERED: ACETAMINOPHEN 1,000 MG/100 ML VIAL IV ONE (07:45)
--- NOTE | 2019-06-13 08:44 | Anesthesiology Progress Note ---
Date of Service June 13, 2019 Anesthesia Post Procedure Vital Signs Vital Signs: Temp Pulse Pulse Resp BP Pulse Ox 06/13/19 08:32 36.3 C L 56 L 17 107/70 97 06/13/19 08:20 55 L 13 111/69 99 06/13/19 08:10 58 L 12 105/68 99 06/13/19 08:03 36.2 C L 53 L 16 119/70 99 06/13/19 05:47 36.7 C 80 18 130/88 95 Pain Intensity Right Upper Abdomen: Pain Intensity: 3 Transfer of Care Handoff Completed per policy Notes Mental Status: alert / awake / arousable Patient Amnestic to Procedure: Yes Nausea / Vomiting: adequately controlled Pain: adequately controlled Airway Patency, RR, SpO2: stable & adequate BP & HR: stable & adequate Hydration State: stable & adequate Anesthetic Complications: no major complications apparent
[2019-06-13] MEDS ORDERED: PROMETHAZINE HCL 12.5 MG in SODIUM CHLORIDE 0.9% 50 ML IV PRN (09:17)
[2019-06-13] MEDS ORDERED: ACETAMINOPHEN 325 MG TAB PO PRN (09:17)
[2019-06-13] MEDS ORDERED: PROMETHAZINE HCL 25 MG in SODIUM CHLORIDE 0.9% 50 ML IV PRN (09:17)
[2019-06-13] MEDS ORDERED: HYDROCODONE/ACETAMOPHEN 5/325MG TAB PO PRN ×2 (09:17)
[2019-06-13] MEDS ORDERED: IBUPROFEN 600 MG TAB PO PRN (09:17)
[2019-06-13] MEDS: ONDANSETRON INJ 2 MG/ML 2 ML VIAL IV PRN ×3 (09:44→23:58)
[2019-06-13] MEDS: LACTATED RINGER'S 1,000 ML IV SCH (10:00)
[2019-06-13] MEDS: HYDROmorphone INJ 0.5 MG/0.5 ML SYR IV PRN ×3 (10:00→17:55)
--- NOTE | 2019-06-13 11:48 | Operative Report ---
DATE OF OPERATION: 06/13/2019 NAME OF OPERATION: Laparoscopic cholecystectomy. PREOPERATIVE DIAGNOSES: Biliary colic and cholelithiasis. POSTOPERATIVE DIAGNOSES: Biliary colic and cholelithiasis. STAFF SURGEON: James Meza MD PURCHASING AGENT: Pedro Stafford PA-C ANESTHESIA: General. DESCRIPTION OF PROCEDURE: The patient was brought in the operating room and placed on the operating table in supine position. Her abdomen was prepped and draped in usual fashion. Pneumatic stockings, orogastric tube were placed. My general office assistant helped with prepping, draping, removal of the gallbladder and closure of the wounds. Initially, skin was anesthetized at all incisions using 0.5% plain Marcaine. Incision was made above the umbilicus, carrying dissection down to the fascia, placing a Veress needle producing pneumoperitoneum. An 11 mm port was placed at this level. Then under visualization, three 5 mm ports were placed, 1 cephalad and 2 laterally. The gallbladder was grasped and retracted. It was very distended. It was aspirated of bile. Dissection was carried out the meredith hepatis, identifying the cystic duct which was very small and narrow. It was clipped and transected. The cystic artery was identified, clipped and transected and then the gallbladder dissected away from the liver bed in the usual fashion. After appropriate hemostasis and irrigation, the gallbladder was placed in an Endobag and then it was removed through the umbilical site. All ports were removed. The pneumoperitoneum was reduced. Fascia at the umbilicus closed using interrupted 0 Vicryl suture. Skin reapproximated at the umbilicus using 5-0 Prolene suture, other sites using subcuticular 4-0 Monocryl with Steri-Strips. The patient was transferred to recovery room in stable condition. I attest to the content of the Intraoperative Record and any orders documented therein. Any exception s are noted below.
--- NOTE | 2019-06-13 14:10 | Consultation ---
Date of Consultation June 13, 2019 Assessment & Plan (1) Post-operative state: s/p lap vlad 06/13 pain control, bowel regimen, dvt proph per primary (2) Depression: continue bupropion (3) Cardiomyopathy: mild - most recent echo with EF of 45-50% likely secondary to LBBB continue metoprolol (4) Migraines: continue prn Fiorecet Supervising Physician Co-Signing Physician Notes I supervised Philly Hernandez NP on this patient's care. I examined the patient today independently of her. I discussed the plan of care with her with the plan being as written in her note except for any following changes/exceptions: None. Patient is post lap vlad with Dr. Meza. When I saw and examined her she was in pleasant spirits surrounded by family. In no acute distress. Is already been up and use the restroom walked around with her . Likely discharge tomorrow. History of Present Illness Attending Physician: James Meza MD, [facility] History of Present Illness Ms. Davidson is post cholecystectomy today. She is very nauseas with abdominal pain. No other complaints. 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 [employer], 10 pack year smoking history quit about 15 years ago, no alcohol Pmhx: lung cancer and CHF in parents, siblings with blood cancer and kidney cancer Allergies Allergy/AdvReac Type Severity Reaction Status Date / Time Cipro Allergy Unknown REDDENED/ Verified 01/29/18 14:09 RASH AT IV SITE ciprofloxacin Allergy Unknown REDDENED/ Verified 06/13/19 05:42 RASH AT IV SITE Home Medications Home Medications Medication Instructions Recorded Confirmed Type bupropion HCl 150 mg PO QPM 05/23/19 06/13/19 History kasrvojuhu-wbwxdduleqdih-jsik 1 tab PO UD 05/23/19 06/13/19 History cetirizine 10 mg PO HS 05/23/19 06/13/19 History estradiol 1 patch TOPICAL WK 05/23/19 06/13/19 History metoprolol succinate 25 mg PO HS 05/23/19 06/13/19 History ondansetron 4 mg PO Q6H PRN #15 tab 05/23/19 06/13/19 Rx rizatriptan See Rx Instructions .ROUTE .COMPLEX 06/13/19 06/13/19 History Patient History Medical History Migraines Depression Hx of Lyme disease Hx lyme disease + bells palsy (appears to date back to 2017 per records but no further details per RN phone interview) Kidney stone Left bundle branch block dating back to at least 2013 per chart review Surgical History H/O: hysterectomy H/O lithotripsy History of cardiac cath 2012= no stents Hx laparoscopic cholecystectomy (06/13/19) Laparoscopic Cholecystectomy Dr. Meza 06-13-19 Hx of colonoscopy Social History Preferred Language: Lithuanian Communication Ability: Effective Stem Mounter Required: No Beliefs That Will Affect Care: None marital status: Current Living Situation: Spouse Other Information That Helps Us Care for You: No Feels Safe at Home: Yes Safety Concerns: Feels Safe At This Time Smoking Status: Never smoker Do You Dip or Chew Tobacco: No ; Second Hand Exposure: No ; Tobacco Cessation Education Requested by Patient: No Hx Alcohol Use: Yes Alcohol type: wine Hx Substance Use: No Review of Systems Review of Systems: All systems reviewed & are unremarkable except as noted in HPI & below Physical Exam Physical Exam: General: no distress Eyes: normal inspection, PERLL Respiratory: chest non tender, clear to auscultation, normal breath sounds, no respiratory distress, no accessory muscle use Cardiac: regular rate and rhythm, no rub or gallop, no murmur, no edema, no jvd GI/: hypoactive bowel sounds, tender abdomen, soft, non distended Extremities: normal range of motion, normal strength, non tender Neuro:oriented x 3, moves all extremities Psych: alert, normal mood and affect Skin: normal color, dry Results & Data Vital Signs (Past 12 Hours) Vital Signs Temp Pulse Pulse Resp BP Pulse Ox 06/13/19 12:14 36.4 C L 72 18 125/77 100 06/13/19 11:11 36.4 C L 67 20 105/70 95 06/13/19 10:09 59 L 18 109/73 91 06/13/19 09:40 67 20 114/66 94 06/13/19 08:50 36.3 C L 50 L 12 102/65 96 06/13/19 08:40 36.3 C L 51 L 18 107/71 99 06/13/19 08:30 36.3 C L 56 L 17 107/70 97 06/13/19 08:20 55 L 13 111/69 99 06/13/19 08:10 58 L 12 105/68 99 06/13/19 08:03 36.2 C L 53 L 16 119/70 99 06/13/19 05:47 36.7 C 80 18 130/88 95 PG Care Time/CCT Total # of Minutes Spent Total Time Spent with Patient: Total time spent is greater than 50% in coordination of care (as documented) at patient's floor/unit and/or counseling patient:
[2019-06-13] MEDS ORDERED: METOPROLOL SUCC 25MG EXT REL TAB PO SCH (21:00)
[2019-06-13] MEDS ORDERED: BuPROPion XL 150 MG TABCR PO SCH (21:00)
[2019-06-14] MEDS: LACTATED RINGER'S 1,000 ML IV SCH (04:08)
[2019-06-14 07:10] LABS: Basophils # (auto) 0.01 K/uL (0-0.2); Basophils % (auto) 0.1 %; Eosinophils # (auto) 0.04 K/uL (0-0.5); Eosinophils % (auto) 0.3 %; Hematocrit (blood only) 41.4 % (37-47); Hemoglobin 13.6 g/dL (12.0-16.0); Immature Granulocytes # (auto) 0.06 K/uL (0.00-0.02); Immature Granulocytes % (auto) 0.4 %; Lymphocytes # (auto) 2.62 K/uL (1.2-3.4); Lymphocytes % (auto) 19.6 %; Mean Corpuscular Hgb Conc 32.9 g/dL (32-36); Mean Corpuscular Volume 93.7 fL (80-100); Mean Platelet Volume 10.4 fL (7.4-10.4); Monocytes # (auto) 0.72 K/uL (0.11-0.59); Monocytes % (auto) 5.4 %; Neutrophils # (auto) 9.95 K/uL (1.4-6.5); Neutrophils % (auto) 74.2 %; Platelet Count 211 K/uL (130-400); RDW Coefficient of Variation 13.1 % (11.5-14.5); RDW Standard Deviation 45.1 fL (36.4-46.3); Red Blood Count 4.42 M/uL (4.2-5.4)
[2019-06-14 07:35] LABS: Alanine Aminotransferase 29 U/L (12-78); Albumin Level 3.3 gm/dl (3.4-5.0); Aspartate Aminotransferase 18 U/L (15-37); BUN Creatinine Ratio 10.6 (10-20); Bilirubin Direct < 0.1 mg/dl (0-0.2); Blood Urea Nitrogen 11 mg/dl (7-18); Calcium 8.9 mg/dl (8.5-10.1); Carbon Dioxide 27 mmol/L (21-32); Chloride 108 mmol/L (98-107); Creatinine Clr Calc Pharmacy 60.7 ml/min; Est GFR (African American) 67.2; Glucose 103 mg/dl (70-99); Potassium 3.6 mmol/L (3.5-5.1); Sodium 141 mmol/L (136-145)
[2019-06-14 07:38] LABS: Albumin Globulin Ratio 1.2 (0.9-2); Alkaline Phosphatase 91 U/L (45-117); Bilirubin,Total 0.3 mg/dl (0.2-1); Globulin 2.7 gm/dl (2.5-4.0); Phosphorus 2.8 mg/dl (2.5-4.9)
--- NOTE | 2019-06-14 11:36 | Discharge Summary ---
PRINCIPAL DIAGNOSIS: Biliary colic. PROCEDURES: The patient underwent laparoscopic cholecystectomy. HISTORY OF PRESENT ILLNESS: The patient is a 54-year-old female with a history of biliary colic and gallstones on CAT scan. HOSPITAL COURSE: She was brought into the hospital on 06/13/2019 where she underwent laparoscopic cholecystectomy. Postoperatively, she did have some nausea and pain, but seems to be well controlled and she does feel she can be discharged home today to be followed in the surgical clinic next week.
== END 2019-06-14 09:12 | disposition home or self-care (01) ==
LOC: ASU 05:04 → 3N 05:04

== ENCOUNTER 2022-12-09 17:13 | Inpatient (IN) ==
--- NOTE | 2022-12-09 17:32 | ED Triage Note ---
Date of Service December 09, 2022 History of Present Illness This patient was briefly evaluated while in triage. An abbreviated physical exam was performed. This patient is a 57-year-old Female with past medical history of depression, migraines who presents to the ED for evaluation of left back/flank pain, nausea and vomiting that got severe today. Has had the pain off and on for a few months. No chest pain or shortness of breath. Did feel like she might pass out from the pain, but denies dizziness currently. History of kidney stones, feels similar. Physical Exam CONSTITUTIONAL: No acute distress. Well appearing. RESPIRATORY: Clear to auscultation bilaterally. Equal expansion bilaterally. CARDIOVASCULAR: Regular rate and rhythm with no murmurs, rubs or gallops. Normal peripheral perfusion. No peripheral edema. GASTROINTESTINAL: Soft, tender in left flank and LLQ, no rebound tenderness. active bowel sounds. MUSCULOSKELETAL: No calf pain or swelling NEUROLOGIC: Alert and oriented X 4 with normal affect. Initial orders for labs and / or imaging were placed and patient was placed in the waiting area until a bed is available. Please see further documentation for the full ED course. MDM / Impression Impression Impression: Renal colic, Kidney stone, Acute flank pain
[2022-12-09] MEDS ORDERED: ONDANSETRON INJ 2 MG/ML 2 ML VIAL IV STA (17:34)
[2022-12-09] MEDS ORDERED: KETOROLAC TROMETHAMINE 15 MG/ML VIAL IV STA (17:34)
[2022-12-09 18:53] LABS: Basophils # (auto) 0.07 K/uL (0-0.2); Basophils % (auto) 0.6 %; Eosinophils # (auto) 0.06 K/uL (0-0.50); Eosinophils % (auto) 0.5 %; Hematocrit (blood only) 47.8 % (37.0-47.0); Hemoglobin 16.4 g/dl (12.0-16.0); Immature Granulocytes # (auto) 0.05 K/uL (0.01-0.20); Immature Granulocytes % (auto) 0.4 %; Lymphocytes # (auto) 2.21 K/uL (1.2-3.4); Lymphocytes % (auto) 19.6 %; Mean Corpuscular Hemoglobin 30.7 pg (25.0-34.0); Mean Corpuscular Hgb Conc 34.3 g/dL (32.0-36.0); Mean Corpuscular Volume 89.3 fL (80.0-100.0); Mean Platelet Volume 10.6 fL (9.4-12.4); Monocytes # (auto) 0.88 K/uL (0.11-0.59); Monocytes % (auto) 7.8 %; Neutrophils # (auto) 8.03 K/uL (1.40-6.50); Neutrophils % (auto) 71.1 %; Platelet Count 240 K/uL (130-400); RDW Standard Deviation 42.3 fL (36.4-46.3); Red Blood Count 5.35 M/uL (4.20-5.40)
[2022-12-09 19:23] LABS: Troponin I High Sensitivity 2.3 pg/ml (0-14)
[2022-12-09] MEDS ORDERED: SODIUM CHLORIDE 0.9% 1000ML 1,000 ML IV ONE (19:30)
[2022-12-09] MEDS ORDERED: MoRPHine SULFATE 4 MG/ML 1 ML CARP\\VIAL IV STA ×2 (19:31→20:52)
--- NOTE | 2022-12-09 19:41 | Emergency Department Note ---
Impression & Plan Renal colic, Kidney stone, Acute flank pain ED Provider Note NAME: BERNARDA RAMIREZ AGE: 57 SEX: F : 1965 ARRIVES VIA: Walk-In INFORMANT: Patient ED PROVIDER(S): Shaji Waldron DO CHIEF COMPLAINT: abdominal pain HPI: Patient is a 57-year-old female who presents ER for abdominal pain. Symptoms started earlier today. She has been feeling dizzy and lightheaded. She is having nausea and left back pain as well as right upper/mid epigastric pain associate with nausea and vomiting. Denies any dysuria, urgency, or frequency. No headache or change in vision. No other exacerbating or remitting factors. She hais been having left lower back pain for the past month but over the past 24 hours it has radiated around to her left lower quadrant/left abdomen. She denies any weakness or numbness in the arms or legs. PAST MEDICAL HISTORY:See Below PAST SURGICAL HISTORY:See Below FAMILY HISTORY:See Below SOCIAL HISTORY:See Below HOME MEDICATIONS:See Below ALLERGIES:See Below VITALS:See Below PHYSICAL EXAMINATION: GENERAL: Sitting up in bed, alert, moderate distress holding flank EYE EXAM: normal conjunctiva. OROPHARYNX: mucous membranes are moist LUNGS: Clear to auscultation. Normal chest wall mechanics HEART: no murmurs, S1 normal and S2 normal ABDOMEN: abdomen soft, tender to palpation in the epigastric region, normo- active bowel sounds, no masses, no rebound or guarding. BACK: Back is symmetrical on inspection and there is no deformity, no midline tenderness, no CVA tenderness. UPPER EXTREMITIES: upper extremities are grossly normal. LOWER EXTREMITIES: No pitting edema. NEURO EXAM: Normal sensorium, cranial nerves II-XII grossly intact, normal speech, no gross weakness of arms, no gross weakness of legs. MEDICAL DECISION MAKING: Patient is a 57-year-old female who presents the ER for flank pain. IV was established blood work was obtained. Labs show mild leukocytosis 11,000. No significant anemia. Dimer was negative. BMP along with LFTs bilirubin was unremarkable. Lipase was normal. Troponin was negative. UA with hematuria. was negative. COVID-negative. CT shows hydronephrosis with a 13 mm stone. Patient was given IV fluids and multiple doses of narcotics as well as Toradol. She was given Zofran and Reglan. Still having persistent pain. Updated bedside discussed with Dr. Jay Schultz for further evaluation and work-up and admission. Also discussed with care managers as well. External records were reviewed. Triage Nursing notes reviewed. Limited review of prior medical records performed Vital Signs: reviewed and remarkable for HTN and tachy Differential diagnosis: Differential diagnoses includes but is not limited to gastritis, peptic ulcer disease, GERD, gallbladder disease, pancreatitis, small bowel obstruction, appendicitis, diverticulitis, hernia, urinary tract infection, torsion, perforation, trauma, infectious. ER treatment provided: See below Diagnostics interpreted by me include EKG and cardiac monitoring as listed below: -Cardiac Monitoring: An order was placed for continuous cardiac monitoring. The monitor shows a rate of 92 with sinus rhythm. -ECG: Sinus rhythm rate 63 Left axis No PVCs T wave inversion in V1 through V6 T wave inversion in the inferior leads Was 2 depressions in V4 through V6 This is new in comparison to may 2019 -Laboratory studies:Interpreted by me as stated above in MDM and shown below. Imaging studies: Xrays: As interpreted by me:none CTs show: CT abdomen pelvis shows left ureteral stone with hydronephrosis per my read. CT was read by radiology and they agree with the renal stone measuring 13 mm. Consultation(s): Discussed Dr. Jay Schultz for further evaluation and work-up Procedures:none Critical Care: None Past Med/Surg History Medical History Cardiomyopathy Depression Hx of cervical cancer Hx of endometriosis Hx of Lyme disease Kidney stone Left bundle branch block Migraine with aura and without status migrainosus, not intractable PONV (postoperative nausea and vomiting) Snores SOB (shortness of breath) on exertion Tonsil stone Surgical History H/O lithotripsy H/O: hysterectomy History of cardiac cath Hx laparoscopic cholecystectomy (06/13/19) Hx of colonoscopy S/P BSO (bilateral salpingo-oophorectomy) Family History Other Adopted Hearing loss Heart disease No family history of adverse response to anesthesia No family history of bleeding disorder Stroke Social History Smoking Status: Never smoker Age Started Using Tobacco: 16; Age Quit Using Tobacco: 39; packs per day: 1; Second Hand Exposure: Yes ( smokes); Hx Alcohol Use: Yes Alcohol type: wine Hx Substance Use: No Preferred Language: Greenlandic Communication Ability: Effective Manager Completions Required: No Beliefs That Will Affect Care: None marital status: Current Living Situation: Spouse current occupational status: employed 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 Feels Safe at Home: Yes Dental Care, Regularly: No Physical Activity Frequency: Does not Exercise Assistive Devices: Glasses Allergies Allergies Allergy/AdvReac Type Severity Reaction Status Date / Time ciprofloxacin Allergy Intermediate REDDENED/ Verified 12/09/22 20:03 RASH AT IV SITE Home Meds Home Medications Medication Instructions Recorded Confirmed fluticasone propionate 50 2 spray intranasal DAILY PRN 05/12/21 12/09/22 mcg/actuation nasal Allergy Symptoms spray,suspension cetirizine 10 mg tablet (Zyrtec) 10 mg PO QPM PRN Congestion 12/09/22 12/09/22 estradiol 0.025 mg/24 hr weekly 1 patch transdermal WK 12/09/22 12/09/22 transdermal patch lasmiditan 100 mg tablet (Reyvow) 100 mg PO DIRECTED PRN migraine 12/09/22 12/09/22 Previous Rx's Medication Instructions Recorded zolmitriptan 5 mg tablet (Zomig) 5 mg PO .COMPLEX PRN migraine 09/01/20 headache #9 tabs metoprolol succinate 25 mg 25 mg PO HS #90 tabs 06/11/22 tablet,extended release 24 hr bupropion HCl 150 mg 24 hr tablet, 150 mg PO DAILY #90 tabs 10/12/22 extended release naltrexone 50 mg tablet 50 mg PO DAILY #30 tabs 11/23/22 topiramate 25 mg tablet 75 mg PO HS #270 tabs 12/09/22 Results & Data (ED) Vital Signs Vital Signs - 24 hr 12/09/22 17:28 12/09/22 20:01 Temperature 36.5 C Temperature Source Temporal Artery Scan Pulse Rate 101 H Pulse Rate [Left Finger] 75 Pulse Rhythm Regular Pulse Rhythm [Left Finger] Regular Pulse Strength Normal Pulse Strength [Left Finger] Normal Respiratory Rate 20 18 Respiratory Effort / Characteristics Non-Labored Spontaneous Non-Labored Spontaneous Respiratory Depth Normal Normal Respiratory Pattern Regular Blood Pressure 166/100 H Blood Pressure [Right Arm] 148/98 H Blood Pressure Mean 122 Blood Pressure Mean [Right Arm] 114 Blood Pressure Position Sitting Blood Pressure Position [Right Arm] Lying Pulse Oximetry 97 99 Oxygen Delivery Method Room Air Room Air Sepsis Recent Fever Within 48 Hours No Sepsis New/Unexplained Change in Mental Status N/A Sepsis Action Taken by Nursing No Action Required Laboratory Data 12/09/22 18:44 12/09/22 18:44 Lab Results 12/09/22 12/09/22 12/09/22 Range/Units 18:44 18:44 18:44 WBC 11.30 H (4.8-10.8) K/ul RBC 5.35 (4.20-5.40) M/uL Hgb 16.4 H (12.0-16.0) g/dl Hct 47.8 H (37.0-47.0) % MCV 89.3 (80.0-100.0) fL MCH 30.7 (25.0-34.0) pg MCHC 34.3 (32.0-36.0) g/dL RDW Std Deviation 42.3 (36.4-46.3) fL RDW Coeff of [place] 13.0 (11.5-14.5) % Plt Count 240 (130-400) K/uL MPV 10.6 (9.4-12.4) fL Immature Gran % (Auto) 0.4 % Neut % (Auto) 71.1 % Lymph % (Auto) 19.6 % [place] % (Auto) 7.8 % Eos % (Auto) 0.5 % Baso % (Auto) 0.6 % Neut # (Auto) 8.03 H (1.40-6.50) K/uL Lymph # (Auto) 2.21 (1.2-3.4) K/uL [place] # (Auto) 0.88 H (0.11-0.59) K/uL Eos # (Auto) 0.06 (0-0.50) K/uL Baso # (Auto) 0.07 (0-0.2) K/uL Immature Gran # (Auto) 0.05 (0.01-0.20) K/uL D-Dimer Cancelled Sodium Cancelled Potassium Cancelled Chloride Cancelled Carbon Dioxide Cancelled Anion Gap Cancelled BUN Cancelled Creatinine Cancelled Est Cr Clr Drug Dosing Cancelled Est GFR ( Amer) Cancelled Est GFR (Non-Af Amer) Cancelled BUN/Creatinine Ratio Cancelled Glucose Cancelled Calcium Cancelled Total Bilirubin Cancelled AST Cancelled ALT Cancelled Alkaline Phosphatase Cancelled Troponin I High Sens 2.3 (0-14) pg/ml Total Protein Cancelled Albumin Cancelled Globulin Cancelled Albumin/Globulin Ratio Cancelled Lipase 19 (11-82) U/L Urine Color Urine Appearance (Clear) Urine pH (4.5-7.5) Ur Specific [place] (1.000-1.030) Urine Protein (Negative) Urine Glucose (UA) (Negative) Urine Ketones (Negative) Urine Blood (Negative) Urine Nitrite (Negative) Urine Bilirubin (Negative) Urine Urobilinogen (Negative) Ur Leukocyte Esterase (Negative) Urine WBC (Auto) (0-5) /hpf Urine RBC (Auto) (0-4) /hpf U Hyaline Cast (Auto) (0-5) /lpf U Epithel Cells (Auto) (0-5) /lpf Urine Bacteria (Auto) (Negative) POC Ur Test (NEG) SARS-CoV-2, RNA, NAAT (NEGATIVE) 12/09/22 12/09/22 12/09/22 Range/Units 19:42 19:50 19:58 WBC (4.8-10.8) K/ul RBC (4.20-5.40) M/uL Hgb (12.0-16.0) g/dl Hct (37.0-47.0) % MCV (80.0-100.0) fL MCH (25.0-34.0) pg MCHC (32.0-36.0) g/dL RDW Std Deviation (36.4-46.3) fL RDW Coeff of [place] (11.5-14.5) % Plt Count (130-400) K/uL MPV (9.4-12.4) fL Immature Gran % (Auto) % Neut % (Auto) % Lymph % (Auto) % [place] % (Auto) % Eos % (Auto) % Baso % (Auto) % Neut # (Auto) (1.40-6.50) K/uL Lymph # (Auto) (1.2-3.4) K/uL [place] # (Auto) (0.11-0.59) K/uL Eos # (Auto) (0-0.50) K/uL Baso # (Auto) (0-0.2) K/uL Immature Gran # (Auto) (0.01-0.20) K/uL D-Dimer Sodium 140 Potassium 4.4 Chloride 110 H Carbon Dioxide 23 Anion Gap 7 BUN 22 Creatinine 0.89 Est Cr Clr Drug Dosing 72.5 Est GFR ( Amer) 82.2 Est GFR (Non-Af Amer) 70.9 BUN/Creatinine Ratio 24.7 H Glucose 90 Calcium 9.4 Total Bilirubin 0.8 AST 34 ALT 64 H Alkaline Phosphatase 82 Troponin I High Sens (0-14) pg/ml Total Protein 6.3 Albumin 4.3 Globulin 2.0 L Albumin/Globulin Ratio 2.2 H Lipase (11-82) U/L Urine Color Yellow Urine Appearance Clear (Clear) Urine pH 7.0 (4.5-7.5) Ur Specific [place] 1.018 (1.000-1.030) Urine Protein Trace H (Negative) Urine Glucose (UA) Negative (Negative) Urine Ketones 2+ H (Negative) Urine Blood 2+ H (Negative) Urine Nitrite Negative (Negative) Urine Bilirubin Negative (Negative) Urine Urobilinogen Negative (Negative) Ur Leukocyte Esterase Negative (Negative) Urine WBC (Auto) 1-5 (0-5) /hpf Urine RBC (Auto) >30 H (0-4) /hpf U Hyaline Cast (Auto) 1-5 (0-5) /lpf U Epithel Cells (Auto) 20-30 H (0-5) /lpf Urine Bacteria (Auto) Negative (Negative) POC Ur Test NEG (NEG) SARS-CoV-2, RNA, NAAT (NEGATIVE) 12/09/22 12/09/22 Range/Units 20:26 21:55 WBC (4.8-10.8) K/ul RBC (4.20-5.40) M/uL Hgb (12.0-16.0) g/dl Hct (37.0-47.0) % MCV (80.0-100.0) fL MCH (25.0-34.0) pg MCHC (32.0-36.0) g/dL RDW Std Deviation (36.4-46.3) fL RDW Coeff of [place] (11.5-14.5) % Plt Count (130-400) K/uL MPV (9.4-12.4) fL Immature Gran % (Auto) % Neut % (Auto) % Lymph % (Auto) % [place] % (Auto) % Eos % (Auto) % Baso % (Auto) % Neut # (Auto) (1.40-6.50) K/uL Lymph # (Auto) (1.2-3.4) K/uL [place] # (Auto) (0.11-0.59) K/uL Eos # (Auto) (0-0.50) K/uL Baso # (Auto) (0-0.2) K/uL Immature Gran # (Auto) (0.01-0.20) K/uL D-Dimer 280 Sodium Potassium Chloride Carbon Dioxide Anion Gap BUN Creatinine Est Cr Clr Drug Dosing Est GFR ( Amer) Est GFR (Non-Af Amer) BUN/Creatinine Ratio Glucose Calcium Total Bilirubin AST ALT Alkaline Phosphatase Troponin I High Sens (0-14) pg/ml Total Protein Albumin Globulin Albumin/Globulin Ratio Lipase (11-82) U/L Urine Color Urine Appearance (Clear) Urine pH (4.5-7.5) Ur Specific [place] (1.000-1.030) Urine Protein (Negative) Urine Glucose (UA) (Negative) Urine Ketones (Negative) Urine Blood (Negative) Urine Nitrite (Negative) Urine Bilirubin (Negative) Urine Urobilinogen (Negative) Ur Leukocyte Esterase (Negative) Urine WBC (Auto) (0-5) /hpf Urine RBC (Auto) (0-4) /hpf U Hyaline Cast (Auto) (0-5) /lpf U Epithel Cells (Auto) (0-5) /lpf Urine Bacteria (Auto) (Negative) POC Ur Test (NEG) SARS-CoV-2, RNA, NAAT NEGATIVE (NEGATIVE) Administered Medications Discontinued Medications Hydromorphone HCl (Hydromorphone Inj 1 Mg/Ml Syringe) 1 mg IV NOW STA Stop: 12/09/22 21:46 Last Admin: 12/09/22 21:57 Dose: 1 mg Documented By: GGG Sodium Chloride (Nss 1000ml) 1,000 mls @ 999 mls/hr IV .Q1H1M ONE Stop: 12/09/22 20:30 Last Infusion: 12/09/22 21:27 Dose: 0 mls/hr Documented By: Admin: 12/09/22 19:36 Dose: 999 mls/hr Documented By: YEYO Ketorolac Tromethamine (Ketorolac Tromethamine 15 Mg/Ml Vial) 10 mg IV NOW STA Stop: 12/09/22 17:35 Last Admin: 12/09/22 19:30 Dose: 10 mg Documented By: YEYO Metoclopramide HCl (Metoclopramide Hcl Inj 5 Mg/Ml 2 Ml Vial) 10 mg IV NOW STA Stop: 12/09/22 22:06 Last Admin: 12/09/22 22:13 Dose: 10 mg Documented By: YEYO Morphine Sulfate (Morphine Sulfate 4 Mg/Ml 1 Ml Carp\Vial) 4 mg IV NOW STA Stop: 12/09/22 19:32 Last Admin: 12/09/22 19:45 Dose: Not Given Documented By: YEYO Morphine Sulfate (Morphine Sulfate 4 Mg/Ml 1 Ml Carp\Vial) 6 mg IV NOW STA Stop: 12/09/22 20:53 Last Admin: 12/09/22 20:59 Dose: 6 mg Documented By: YEYO Ondansetron HCl (Ondansetron Inj 2 Mg/Ml 2 Ml Vial) 4 mg IV NOW STA Stop: 12/09/22 17:35 Last Admin: 12/09/22 19:27 Dose: 4 mg Documented By: YEYO Imaging Data Radiologist's Impression: Abdomen/Pelvis CT 12/09/22 17:34 CT SCAN OF THE ABDOMEN AND PELVIS WITHOUT IV CONTRAST CLINICAL HISTORY: Left flank pain. COMPARISON STUDY: Abdominal CT dated 12/27/2019. TECHNIQUE: CT scan of the abdomen and pelvis is performed from the lung bases to the proximal femora. Images are reviewed in the axial, sagittal, and coronal planes. IV contrast was not administered for this examination. A dose lowering technique was utilized adhering to the principles of ALARA. CT DOSE: 836.02 mGycm FINDINGS: Lung bases: The heart is normal in size and without pericardial effusion. The lung bases are clear. A fat-containing Bochdalek hernia is seen on the right. Liver: The unenhanced liver is normal in size, contour, and attenuation. There is minimal central intrahepatic biliary ductal dilatation. Gallbladder: Surgically absent and clips in the gallbladder fossa. Spleen: Normal in size and attenuation. Pancreas: Unremarkable. Adrenal glands: Unremarkable. Kidneys: The unenhanced kidneys are normal in size. There is a 13 mm obstructing calculus at the left ureteropelvic junction seen on image #160. This causes moderate left hydronephrosis, with associated left-sided perinephric stranding. There are at least 9 additional nonobstructing left renal calculi which measure up to 12 mm. There are at least 2 nonobstructing right renal calculi which measure up to 2 mm. No right ureteral stone is seen and there is no right-sided hydronephrosis. A 1.7 cm cyst is noted on the left. Abdominal vasculature: The abdominal aorta is normal in course and caliber. Bowel: There are scattered colonic diverticula without CT evidence of acute diverticulitis. No bowel obstruction is seen. The appendix is well-visualized and normal. Peritoneum: There is no intraperitoneal free air or abdominal ascites. There is a fat-containing umbilical hernia. Lymphadenopathy: None. Pelvic viscera: The bladder is decompressed and grossly unremarkable. The uterus is surgically absent. No adnexal lesion is seen. Skeletal structures: The skeletal structures are osteopenic. There is moderate lumbosacral spondylosis as well as mild scoliosis. No lytic or blastic lesions are seen. IMPRESSION: 1. There is a 13 mm obstructing calculus at the left ureteropelvic junction. This causes moderate left hydronephrosis. 2. Additional bilateral nonobstructing renal calculi as above. 3. Additional findings as above. ACT 112: Negative or not required by law. Electronically signed by: Agustin Gee M.D. 12/09/2022 7:56 PM Discharge Plan Visit Data Chief Complaint: Back Injury/Pain Stated Complaint: VOMITING, LOWER BACK PAIN, URINARY SYMPTOMS ED Provider: Shaji Waldron Discharge Problem: Renal colic, Kidney stone, Acute flank pain Patient Disposition: Admitted As Inpatient Discharge Instructions Interventions: ED Discharge Assessment Last Done: 12/09/22 23:11
--- NOTE | 2022-12-09 19:58 | CT Scan Report ---
CT SCAN OF THE ABDOMEN AND PELVIS WITHOUT IV CONTRAST CLINICAL HISTORY: Left flank pain. COMPARISON STUDY: Abdominal CT dated 12/27/2019. TECHNIQUE: CT scan of the abdomen and pelvis is performed from the lung bases to the proximal femora. Images are reviewed in the axial, sagittal, and coronal planes. IV contrast was not administered for this examination. A dose lowering technique was utilized adhering to the principles of ALARA. CT DOSE: 836.02 mGycm FINDINGS: Lung bases: The heart is normal in size and without pericardial effusion. The lung bases are clear. A fat-containing Bochdalek hernia is seen on the right. Liver: The unenhanced liver is normal in size, contour, and attenuation. There is minimal central int rahepatic biliary ductal dilatation. Gallbladder: Surgically absent and clips in the gallbladder fossa. Spleen: Normal in size and attenuation. Pancreas: Unremarkable. Adrenal glands: Unremarkable. Kidneys: The unenhanced kidneys are normal in size. There is a 13 mm obstructing calculus at the left ureteropelvic junction seen on image #160. This causes moderate left hydronephrosis, with associated left-sided perinephric stranding. There are at least 9 additional nonobstructing left renal calculi which measure up to 12 mm. There are at least 2 nonobstructing right renal calculi which measure up t o 2 mm. No right ureteral stone is seen and there is no right-sided hydronephrosis. A 1.7 cm cyst is noted on the left. Abdominal vasculature: The abdominal aorta is normal in course and caliber. Bowel: There are scattered colonic diverticula without CT evidence of acute diverticulitis. No bowel obstruction is seen. The appendix is well-visualized and normal. Peritoneum: There is no intraperitoneal free air or abdominal ascites. There is a fat-containing umbi lical hernia. Lymphadenopathy: None. Pelvic viscera: The bladder is decompressed and grossly unremarkable. The uterus is surgically absent . No adnexal lesion is seen. Skeletal structures: The skeletal structures are osteopenic. There is moderate lumbosacral spondylosi s as well as mild scoliosis. No lytic or blastic lesions are seen. IMPRESSION: 1. There is a 13 mm obstructing calculus at the left ureteropelvic junction. This causes moderate lef t hydronephrosis. 2. Additional bilateral nonobstructing renal calculi as above. 3. Additional findings as above. ACT 112: Negative or not required by law. Electronically signed by: Agustin Gee M.D. 12/09/2022 7:56 PM
[2022-12-09 20:10] LABS: Appearance Urine Clear (Clear); Bacteria Urine Automated Negative (Negative); Bilirubin Urine Negative (Negative); Blood Urine 2+ (Negative); Color Urine Yellow; Epithelial Cell Urine Auto 20-30 /lpf (0-5); Glucose Urine UA Negative (Negative); Ketones Urine 2+ (Negative); Leukocyte Esterase Urine Negative (Negative); Nitrite Urine Negative (Negative); Protein Urine Trace (Negative); RBC Urine Automated >30 /hpf (0-4); Specific Gravity Urine 1.018 (1.000-1.030); Urobilinogen Urine Negative (Negative)
[2022-12-09 20:14] LABS: Albumin Globulin Ratio 2.2 (0.9-2); Albumin Level 4.3 gm/dl (3.4-5.0); BUN Creatinine Ratio 24.7 (10-20); Bilirubin,Total 0.8 mg/dl (0.2-1.0); Calcium 9.4 mg/dl (8.5-10.1); Creatinine Clr Calc Pharmacy 72.5 ml/min; Est GFR (African American) 82.2 ml/min; Est GFR (Non-African American) 70.9 ml/min; Potassium 4.4 mmol/L (3.5-5.1); Total Protein 6.3 gm/dl (6.0-8.3)
[2022-12-09 21:12] LABS: D Dimer 280 ug/L FEU (0-500)
[2022-12-09] MEDS ORDERED: HYDROmorphone INJ 1 MG/ML SYRINGE IV STA (21:45)
[2022-12-09] MEDS ORDERED: METOCLOPRAMIDE HCL INJ 5 MG/ML 2 ML VIAL IV STA (22:05)
--- NOTE | 2022-12-09 22:38 | Billing Data ---
Date of Service December 09, 2022 Coding Level of Care Code 44192 INT INP/OBS CARE
[2022-12-09] MEDS ORDERED: ACETAMINOPHEN 325 MG TAB PO PRN (22:39)
[2022-12-09] MEDS ORDERED: LACTATED RINGER'S 1,000 ML IV SCH (23:39)
[2022-12-09] MEDS ORDERED: ONDANSETRON INJ 2 MG/ML 2 ML VIAL IV PRN (23:39)
[2022-12-09] MEDS ORDERED: HYDROmorphone INJ 0.5 MG/0.5 ML SYR IV PRN (23:39)
[2022-12-09] MEDS ORDERED: cefTRIAXone SODIUM 1,000 MG in DEXTROSE 5% AD-VAN 50 ML IV SCH (23:39)
--- NOTE | 2022-12-10 00:17 | History & Physical Report ---
Date of Service December 10, 2022 The patient was seen and examined on 12/09/2022 Assessment & Plan Admission and Anticipated Discharge Date Admission Date: December 09, 2022 History of Present Illness Primary Care Provider: Donaldo Hsieh MD Allergies Allergy/AdvReac Type Severity Reaction Status Date / Time ciprofloxacin Allergy Intermediate REDDENED/ Verified 12/09/22 20:03 RASH AT IV SITE Home Medications Medication Instructions Recorded Confirmed Type zolmitriptan 5 mg tablet (Zomig) 5 mg PO .COMPLEX PRN migraine 09/01/20 12/09/22 Rx headache #9 tabs fluticasone propionate 50 2 spray intranasal DAILY PRN 05/12/21 12/09/22 History mcg/actuation nasal Allergy Symptoms spray,suspension metoprolol succinate 25 mg 25 mg PO HS #90 tabs 06/11/22 12/09/22 Rx tablet,extended release 24 hr bupropion HCl 150 mg 24 hr tablet, 150 mg PO DAILY #90 tabs 10/12/22 12/09/22 Rx extended release naltrexone 50 mg tablet 50 mg PO DAILY #30 tabs 11/23/22 12/09/22 Rx cetirizine 10 mg tablet (Zyrtec) 10 mg PO QPM PRN Congestion 12/09/22 12/09/22 History estradiol 0.025 mg/24 hr weekly 1 patch transdermal WK 12/09/22 12/09/22 History transdermal patch lasmiditan 100 mg tablet (Reyvow) 100 mg PO DIRECTED PRN migraine 12/09/22 12/09/22 History phenazopyridine 100 mg tablet 100 mg PO TID PRN pain 6 doses #6 12/10/22 Rx (Pyridium) tabs tamsulosin 0.4 mg capsule 0.4 mg PO QAM #14 caps 12/10/22 Rx topiramate 25 mg tablet 75 mg PO HS #270 tabs 12/11/22 Rx Past Med/Surg History Medical History (Updated 12/10/22 @ 07:55 by Pedro Sutton MD) Cardiomyopathy 2020 echo EF 50-55% Depression Hx of cervical cancer Hx of endometriosis Hx of Lyme disease Hx lyme disease + bells palsy (appears to date back to 2017 per records but no further details per RN phone interview) Kidney stone Left bundle branch block Migraine with aura and without status migrainosus, not intractable PONV (postoperative nausea and vomiting) Snores SOB (shortness of breath) on exertion Surgical History (Updated 12/10/22 @ 07:53 by Pedro Sutton MD) H/O lithotripsy H/O: hysterectomy DONNIE History of cardiac cath LBBB 2012= no stents Hx laparoscopic cholecystectomy (06/13/19) Hx of colonoscopy S/P BSO (bilateral salpingo-oophorectomy) Family History Other Adopted Hearing loss Heart disease No family history of adverse response to anesthesia No family history of bleeding disorder Stroke Social History Smoking Status: Never smoker Age Started Using Tobacco: 16; Age Quit Using Tobacco: 39; packs per day: 1; Second Hand Exposure: Yes ( smokes); Hx Alcohol Use: Yes Alcohol type: wine Hx Substance Use: No Preferred Language: [place] Communication Ability: Effective Car Chaser Required: No Beliefs That Will Affect Care: None marital status: Current Living Situation: Spouse current occupational status: employed 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 Feels Safe at Home: Yes Dental Care, Regularly: No Physical Activity Frequency: Does not Exercise Assistive Devices: Glasses Results & Data Results & Data ([facility]) Vital Signs (Past 12 Hours) Vital Signs Temp Pulse Pulse Resp BP BP Pulse Ox 12/09/22 23:59 36.7 C 79 18 125/84 99 12/09/22 20:01 75 18 148/98 H 99 12/09/22 17:28 36.5 C 101 H 20 166/100 H 97 O2 Del Method 12/09/22 23:59 Room Air 12/09/22 20:01 Room Air 12/09/22 17:28 Room Air Code Status & VTE Plan VTE Prophylaxis Plan VTE Prophylaxis will be ordered: Yes PG Care Time/CCT Total # of Minutes Spent Total Time Spent with Patient: Total time spent is greater than 50% in coordination of care (as documented) at patient's floor/unit and/or counseling patient: Coding Level of Care Code 16190 INT INP/OBS CARE 2/55MIN
[2022-12-10] MEDS ORDERED: cefTRIAXone SODIUM 2,000 MG in DEXTROSE 5% 50 ML IV SCH (01:00)
[2022-12-10] MEDS ORDERED: Nursing to Pharmacy Communication SCH (02:00)
--- NOTE | 2022-12-10 05:57 | Urology Consultation ---
Date of Consultation December 10, 2022 Assessment & Plan (1) Renal colic: Patient has been admitted on the hospitalist service. Recommend proceeding as follows: Provide analgesics Provide antiemetics IV fluid for hydration Flomax for expulsive therapy At the present time the patient is not exhibiting any fevers. She also has normal renal function and is not hypotensive or tachycardic. She does have a slight elevation of her white blood cell count. The present time she does not require an emergent cystoscopy but we will keep her n.p.o. for the present time and she will be reevaluated by urology attending this morning to see if cystoscopy will be required. Initial recommendations be forthcoming based on her clinical course as it unfolds Supervising Physician Co-Signing Physician Notes Discussed patient with EVA. Agree with plan. Plan to go to the OR for cystoscopy, left retrograde pyelogram and left ureteral stent placement. Risks and benefits discussed. Consent obtained. Patient marked. History of Present Illness Reason for Consultation: Nephrolithiasis Attending Physician: Jay Schultz MD History of Present Illness This is a 57-year-old female who is notes that she has been having left-sided flank pain for approximately 1 month. She says that the pain would come and go and sometimes radiate to the front of her abdomen but over the past 24 hours preceding hospitalization the pain got markedly worse. She has had associated nausea and vomiting but has not had any fever shakes or chills. She does not note any modifying factors to the pain. She denies any dysuria or hematuria. She does note that she has had kidney stones in the past requiring lithotripsy but has been in excess of 1 year since she has had any procedures. Since arrival to the hospital the patient has had labs and imaging which independent reviewed. A CT scan of the abdomen pelvis showed a 13 mm obstructing kidney stone at the left ureteropelvic junction resulting in hydronephrosis. Labs included a CBC were white blood cell count was 11.3. Hemoglobin and hematocrit are 16.4 and 47.8. Platelet count was 240,000. Chemistry profile showed sodium, potassium, BUN, creatinine were normal. Urinalysis was not indicative of infection. A COVID test was negative. At the time of my interview the patient was resting comfortably in bed and she was no distress. Allergies Allergy/AdvReac Type Severity Reaction Status Date / Time ciprofloxacin Allergy Intermediate REDDENED/ Verified 12/09/22 20:03 RASH AT IV SITE Patient History Medical History (Updated 12/10/22 @ 07:55 by Pedro Sutton MD) Cardiomyopathy 2020 echo EF 50-55% Depression Hx of cervical cancer Hx of endometriosis Hx of Lyme disease Hx lyme disease + bells palsy (appears to date back to 2017 per records but no further details per RN phone interview) Kidney stone Left bundle branch block Migraine with aura and without status migrainosus, not intractable PONV (postoperative nausea and vomiting) Snores SOB (shortness of breath) on exertion Surgical History (Updated 12/10/22 @ 07:53 by Pedro Sutton MD) H/O lithotripsy H/O: hysterectomy DONNIE History of cardiac cath LBBB 2012= no stents Hx laparoscopic cholecystectomy (06/13/19) Hx of colonoscopy S/P BSO (bilateral salpingo-oophorectomy) Family History Other Adopted Hearing loss Heart disease No family history of adverse response to anesthesia No family history of bleeding disorder Stroke Social History Smoking Status: Never smoker Age Started Using Tobacco: 16; Age Quit Using Tobacco: 39; packs per day: 1; Second Hand Exposure: Yes ( smokes); Hx Alcohol Use: Yes Alcohol type: wine Hx Substance Use: No Preferred Language: Beninese Communication Ability: Effective Client Relationship Consultant Required: No Beliefs That Will Affect Care: None marital status: Current Living Situation: Spouse current occupational status: employed 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 Feels Safe at Home: Yes Dental Care, Regularly: No Physical Activity Frequency: Does not Exercise Assistive Devices: Glasses Review of Systems Constitutional: no fever and no chills Eyes: no eye pain Ear, Nose, Mouth, Throat: no ear pain Respiratory: no cough and no dyspnea Cardiovascular: no chest pain Gastrointestinal: + abdominal pain (Radiating from left flank), + nausea and + vomiting Genitourinary: as per Subjective / HPI Musculoskeletal: + back pain (Left flank) Integumentary: no rash Neurologic: no localized weakness Physical Exam Constitutional: WD/WN, vitals as above Eyes: no conjunctival abnormality ENMT: Ears: no hearing impairment and no external ear abnormality Mouth: no oropharynx abnormality Neck: trachea midline Respiratory: normal respiratory effort; no respiratory distress and no labored breathing Cardiovascular: Rate/Rhythm: regular rate and regular rhythm Gastrointestinal (Abdomen): Soft, nonrigid, and nondistended. Slight pain with palpation noted on the left side of her abdomen Musculoskeletal: No calf tenderness Skin: no rashes Neurologic: moves all extremities Psychiatric: A+Ox3, euthymic affect Genitourinary: + CVA tenderness (Slight tenderness noted on the left side with percussion) Results & Data ([facility]) Vital Signs (Past 12 Hours) Vital Signs Temp Pulse Resp BP Pulse Ox O2 Del Method 12/09/22 23:59 36.7 C 79 18 125/84 99 Room Air 12/09/22 20:01 75 18 148/98 H 99 Room Air PG Care Time/CCT Total # of Minutes Spent Total Time Spent with Patient: Total time spent is greater than 50% in coordination of care (as documented) at patient's floor/unit and/or counseling patient: Coding Level of Care Code INP/OBS CONSULT LVL 5, 80 MIN Diagnoses Renal colic N23
[2022-12-10] MEDS ORDERED: fentaNYL citrate 100 MCG/2 ML VIAL ONE (07:48)
[2022-12-10] MEDS ORDERED: MIDAZOLAM HCL 1 MG/ML 2ML VIAL ONE (07:48)
[2022-12-10] MEDS ORDERED: LIDOCAINE 2% MPF LOCAL 5 ML VIAL INFIL ONE (07:52)
[2022-12-10] MEDS ORDERED: PROPOFOL IV EMULSION 10 MG/ML 20 ML VIAL IV ONE ×2 (07:52→08:37)
--- NOTE | 2022-12-10 07:56 | Anesthesiology Consultation ---
Date of Service December 10, 2022 Assessment & Plan (1) Encounter for pre-operative examination: Chart Review Chart Review: Acceptable Risk for Surgery History Surgery Operation Date: 12/10/22 08:30 Proposed Procedures p Cystoscopy, Retrograde Pyelogram, and Left Ureteral Stent Insertion(Left) - Sammy Gipson MD Height/Weight Height: 5 ft 1 in Weight: 80.3 kg Allergies Allergy/AdvReac Type Severity Reaction Status Date / Time ciprofloxacin Allergy Intermediate REDDENED/ Verified 12/09/22 20:03 RASH AT IV SITE Medications Home Medications Medication Instructions Recorded Confirmed Last Taken zolmitriptan 5 mg tablet (Zomig) 5 mg PO .COMPLEX PRN migraine 09/01/20 12/09/22 Unknown headache #9 tabs fluticasone propionate 50 2 spray intranasal DAILY PRN 05/12/21 12/09/22 Unknown mcg/actuation nasal Allergy Symptoms spray,suspension metoprolol succinate 25 mg 25 mg PO HS #90 tabs 06/11/22 12/09/22 12/08/22 tablet,extended release 24 hr bupropion HCl 150 mg 24 hr tablet, 150 mg PO DAILY #90 tabs 10/12/22 12/09/22 12/09/22 extended release naltrexone 50 mg tablet 50 mg PO DAILY #30 tabs 11/23/22 12/09/22 12/09/22 cetirizine 10 mg tablet (Zyrtec) 10 mg PO QPM PRN Congestion 12/09/22 12/09/22 Unknown estradiol 0.025 mg/24 hr weekly 1 patch transdermal WK 12/09/22 12/09/22 12/09/22 transdermal patch lasmiditan 100 mg tablet (Reyvow) 100 mg PO DIRECTED PRN migraine 12/09/22 12/09/22 Unknown topiramate 25 mg tablet 75 mg PO HS #270 tabs 12/09/22 12/09/22 12/08/22 Active Medications Generic Name Dose Route Start Last Admin Trade Name Freq PRN Reason Stop Dose Admin Hydromorphone HCl 0.5 mg 12/09/22 23:39 12/10/22 05:22 Hydromorphone Inj 0.5 Mg/0.5 Ml Syr IV 12/23/22 23:38 0.5 mg Q3H PRN Administration Severe Pain Lactated Ringer's 1,000 mls @ 80 mls/hr 12/09/22 23:39 12/10/22 01:40 Lr IV 01/08/23 23:38 80 mls/hr .[id number] Administration Ceftriaxone Sodium 2,000 mg/ 70 mls @ 140 mls/hr 12/10/22 01:00 12/10/22 01:45 Dextrose IV 12/20/22 00:59 Infused Q24H JACEK Infusion Past Medical History Medical History (Updated 12/10/22 @ 07:55 by Pedro Sutton MD) Cardiomyopathy 2020 echo EF 50-55% Depression Hx of cervical cancer Hx of endometriosis Hx of Lyme disease Hx lyme disease + bells palsy (appears to date back to 2016 per records but no further details per RN phone interview) Kidney stone Left bundle branch block Migraine with aura and without status migrainosus, not intractable PONV (postoperative nausea and vomiting) Snores SOB (shortness of breath) on exertion Past Family History Family History Other Adopted Hearing loss Heart disease No family history of adverse response to anesthesia No family history of bleeding disorder Stroke Past Surgical History Surgical History (Updated 12/10/22 @ 07:53 by Pedro Sutton MD) H/O lithotripsy H/O: hysterectomy DONNIE History of cardiac cath LBBB 2012= no stents Hx laparoscopic cholecystectomy (06/13/19) Hx of colonoscopy S/P BSO (bilateral salpingo-oophorectomy) Social History Smoking Status: Never smoker tobacco type: cigarettes Hx Alcohol Use: Yes Alcohol type: wine alcohol intake frequency: holidays/special occasions only Hx Substance Use: No substance use type: does not use Physical Exam Vital Signs Last Vital Signs Temp 36.7 C 12/10/22 07:09 Pulse 76 12/10/22 07:09 Resp 16 12/10/22 07:09 BP 125/81 12/10/22 07:09 Pulse Ox 97 12/10/22 07:09 O2 Del Method 12/10/22 07:09 Testing Laboratory Results 12/09/22 18:44 12/09/22 19:42 Urine Color Yellow 12/09/22 19:50 Urine Appearance Clear (Clear) 12/09/22 19:50 Urine pH 7.0 (4.5-7.5) 12/09/22 19:50 Ur Specific [place] 1.018 (1.000-1.030) 12/09/22 19:50 Urine Protein Trace (Negative) H 12/09/22 19:50 Urine Glucose (UA) Negative (Negative) 12/09/22 19:50 Urine Ketones 2+ (Negative) H 12/09/22 19:50 Urine Nitrite Negative (Negative) 12/09/22 19:50 Ur Leukocyte Esterase Negative (Negative) 12/09/22 19:50 Urine WBC (Auto) 1-5 /hpf (0-5) 12/09/22 19:50 Urine RBC (Auto) >30 /hpf (0-4) H 12/09/22 19:50 U Hyaline Cast (Auto) 1-5 /lpf (0-5) 12/09/22 19:50 U Epithel Cells (Auto) 20-30 /lpf (0-5) H 12/09/22 19:50 Urine Bacteria (Auto) Negative (Negative) 12/09/22 19:50 12/09/22 19:58 POC Ur Test NEG Electrocardiogram Date: 12/09/22 Findings: + NSR @ (63) and + poor R wave progression no longer showing bundle branch block Echocardiogram Date: 05/14/21 EF: 50-55% Valvular Disease: + no significant valvular disease
[2022-12-10] MEDS ORDERED: fentaNYL citrate 100 MCG/2 ML VIAL IV PRN (08:22)
[2022-12-10] MEDS ORDERED: ONDANSETRON INJ 2 MG/ML 2 ML VIAL IV PRN (08:22)
[2022-12-10] MEDS ORDERED: ATROPINE SULFATE 0.1 MG/ML 10ML SYR IV PRN (08:22)
--- NOTE | 2022-12-10 08:42 | Post Operative Brief Note ---
PG Immediate Post Op with CF Date of Surgery December 10, 2022 Pre & Post Diagnosis Left urolithiasis Operation Date: 12/10/22 08:30 <No data on this case meets the specified criteria> Left urolithiasis I identified the patient and participated in the time-out.: Yes Procedure Cystoscopy, left retrograde pyelogram with radiographic interpretation, left ureteral stent placement Operation Date: 12/10/22 08:30 <No data on this case meets the specified criteria> Surgeon Sammy Gipson MD Horses [employer] None Estimated Blood Loss 0 Findings See Below Moderate left hydro. Stent in appropriate position. Drains Other (6 Indian by 24 cm left ureteral stent) Anesthesia Type MAC Complications none
--- NOTE | 2022-12-10 08:43 | Operative Report ---
PG Post Operative Report Pre & Post Diagnosis Left urolithiasis Operation Date: 12/10/22 08:30 <No data on this case meets the specified criteria> Left urolithiasis I identified the patient and participated in the time-out.: Yes Procedure Cystoscopy, left retrograde pyelogram with radiograph interpretation, left ureteral stent placement Operation Date: 12/10/22 08:30 <No data on this case meets the specified criteria> Surgeon Sammy Gipson MD Sample Box Maker None Estimated Blood Loss 0 Findings See Below Moderate left hydronephrosis. Stent in appropriate position. Specimens None Drains 6 Macedonian by 24 cm left ureteral stent Anesthesia Type MAC Complications none Indications 57-year-old female with a left renal pelvis obstructing stone as well as large left nonobstructing stone burden. Has had pain for 1 month. Risk benefits discussed and opted for stent placement for pain control. Description of Procedure After informed consent was obtained, the patient was transported operative suite. MAC anesthesia was induced. The patient was placed in dorsal lithotomy position prepped and draped in a sterile fashion. They received preoperative ceftriaxone for antibiotic prophylaxis. An appropriate surgical timeout was performed. A 22 Macedonian rigid scope was inserted per urethra into the bladder. Marcos cystoscopy revealed no stones or lesions. I turned my attention the left ureteral orifice and intubated this with a 5 Macedonian open-ended catheter. A left retrograde pyelogram was shot which showed moderate left hydronephrosis. A sensor wire was advanced into the kidney and confirmed fluoroscopically. A 6 Macedonian by 24 cm left ureteral stent was deployed with a good proximal coil in the renal pelvis and a good distal coil noted in the bladder. These were confirmed fluoroscopically and under direct visualization, respectively. The bladder was emptied and the scope was removed. This concluded the end of the case. All counts were correct at the end of the case. I was present, scrubbed, and actively participated for the entirety of the procedure. I attest to the content of the Intraoperative Record and any orders documented therein. Any exceptions are noted below.
[2022-12-10] MEDS ORDERED: KETOROLAC 30 MG/ML VIAL ONE (08:49)
--- NOTE | 2022-12-10 08:52 | Fluoroscopy Report ---
FL retrograde includes kub CLINICAL HISTORY: Stent placementleft hydronephrosis COMPARISON STUDY: CT 12/09/2022 FLUOROSCOPY TIME: 7.3 seconds FLUOROSCOPY IMAGES: 1 EXPOSURE DOSE: 1.44 mGy FINDINGS: Proximal portion of a left ureteral stent appears to be in satisfactory positioning. Mild l eft-sided hydronephrosis redemonstrated with probable calculus within the left renal pelvis. Distal p ortion of the stent was not imaged. IMPRESSION: Fluoroscopic assistance as above. ACT 112: Negative or not required by law. Electronically signed by: Grupo Sigala M.D. 12/10/2022 8:51 AM
[2022-12-10] MEDS ORDERED: NALTREXONE HCL 50 MG TAB PO SCH (09:00)
[2022-12-10] MEDS ORDERED: buPROPion XL 150 MG TABCR PO SCH (09:00)
[2022-12-10] MEDS ORDERED: TAMSULOSIN HCL 0.4 MG CAP PO SCH (09:00)
--- NOTE | 2022-12-10 09:14 | Anesthesiology Progress Note ---
Date of Service December 10, 2022 Anesthesia Post Procedure Vital Signs Vital Signs: Temp Pulse Pulse Pulse Resp BP BP 12/10/22 09:10 76 16 116/79 12/10/22 09:00 75 14 117/71 12/10/22 08:50 36.8 C 84 19 107/92 12/10/22 07:09 36.7 C 76 16 125/81 12/09/22 23:59 36.7 C 79 18 125/84 12/09/22 20:01 75 18 148/98 H 12/09/22 17:28 36.5 C 101 H 20 166/100 H Pulse Ox O2 Del Method 12/10/22 09:10 96 Room Air 12/10/22 09:00 96 Room Air 12/10/22 08:50 97 Room Air 12/10/22 07:09 97 Room Air 12/09/22 23:59 99 Room Air 12/09/22 20:01 99 Room Air 12/09/22 17:28 97 Room Air Pain Intensity Lower Back: Pain Intensity: 3 Transfer of Care Handoff Completed per policy Notes Mental Status: alert / awake / arousable Patient Amnestic to Procedure: Yes Nausea / Vomiting: adequately controlled Pain: adequately controlled Airway Patency, RR, SpO2: stable & adequate BP & HR: stable & adequate Hydration State: stable & adequate Anesthetic Complications: no major complications apparent
[2022-12-10] MEDS: HYDROmorphone INJ 0.5 MG/0.5 ML SYR IV PRN ×2 (09:53→14:50)
[2022-12-10 10:15] LABS: Basophils # (auto) 0.06 K/uL (0-0.2); Basophils % (auto) 0.6 %; Eosinophils # (auto) 0.08 K/uL (0-0.50); Eosinophils % (auto) 0.9 %; Hematocrit (blood only) 42.8 % (37.0-47.0); Hemoglobin 14.7 g/dl (12.0-16.0); Immature Granulocytes # (auto) 0.03 K/uL (0.01-0.20); Immature Granulocytes % (auto) 0.3 %; Lymphocytes # (auto) 2.51 K/uL (1.2-3.4); Lymphocytes % (auto) 26.7 %; Mean Corpuscular Hemoglobin 30.8 pg (25.0-34.0); Mean Corpuscular Hgb Conc 34.3 g/dL (32.0-36.0); Mean Corpuscular Volume 89.7 fL (80.0-100.0); Mean Platelet Volume 10.4 fL (9.4-12.4); Monocytes # (auto) 0.78 K/uL (0.11-0.59); Monocytes % (auto) 8.3 %; Neutrophils # (auto) 5.94 K/uL (1.40-6.50); Neutrophils % (auto) 63.2 %; Platelet Count 195 K/uL (130-400); Red Blood Count 4.77 M/uL (4.20-5.40)
[2022-12-10 10:42] LABS: Albumin Level 3.9 gm/dl (3.4-5.0); BUN Creatinine Ratio 19.3 (10-20); Calcium 8.6 mg/dl (8.5-10.1); Est GFR (African American) 89.5 ml/min; Est GFR (Non-African American) 77.2 ml/min; Magnesium 1.8 mg/dl (1.7-2.4); Phosphorus 2.3 mg/dl (2.5-4.9); Potassium 3.6 mmol/L (3.5-5.1)
--- NOTE | 2022-12-10 12:00 | Discharge Summary ---
Date of Service December 10, 2022 Admission HPI Per Admitting Provider This is a 57-year-old female who is notes that she has been having left-sided flank pain for approximately 1 month. She says that the pain would come and go and sometimes radiate to the front of her abdomen but over the past 24 hours preceding hospitalization the pain got markedly worse. She has had associated nausea and vomiting but has not had any fever shakes or chills. She does not note any modifying factors to the pain. She denies any dysuria or hematuria. She does note that she has had kidney stones in the past requiring lithotripsy but has been in excess of 1 year since she has had any procedures. Since arrival to the hospital the patient has had labs and imaging which independent reviewed. A CT scan of the abdomen pelvis showed a 13 mm obstructing kidney stone at the left ureteropelvic junction resulting in hydronephrosis. Labs included a CBC were white blood cell count was 11.3. Hemoglobin and hematocrit are 16.4 and 47.8. Platelet count was 240,000. Chemistry profile showed sodium, potassium, BUN, creatinine were normal. Urinalysis was not indicative of infection. A COVID test was negative. Principal Diagnosis Left ureteral calculus with hydronephrosis s/p cystoscopy with stent placement Discharge Exam GENERAL: 57 yo Well-developed, well-nourished WF. NAD. LUNGS: Clear to auscultation bilaterally. No W/R/R. CARDIOVASCULAR: Regular rate and rhythm. ABDOMEN: Soft and non-distended. Mild tenderness along left flank and left groin. BS normoactive x 4 quad. Discharge Data Allergies Allergy/AdvReac Type Severity Reaction Status Date / Time ciprofloxacin Allergy Intermediate REDDENED/ Verified 12/09/22 20:03 RASH AT IV SITE Consultations 12/09/22 21:45 ED Decision to Admit Stat 12/09/22 23:39 Consult Urology Routine Procedures Performed Operation Date: 12/10/22 08:30 Actual Procedures p Cystoscopy, Retrograde Pyelogram, and Left Ureteral Stent Insertion(Left) - Sammy Gipson MD Ordered Studies Abdomen/Pelvis CT 12/09/22 17:34 CT SCAN OF THE ABDOMEN AND PELVIS WITHOUT IV CONTRAST CLINICAL HISTORY: Left flank pain. COMPARISON STUDY: Abdominal CT dated 12/27/2019. TECHNIQUE: CT scan of the abdomen and pelvis is performed from the lung bases to the proximal femora. Images are reviewed in the axial, sagittal, and coronal planes. IV contrast was not administered for this examination. A dose lowering technique was utilized adhering to the principles of ALARA. CT DOSE: 836.02 mGycm FINDINGS: Lung bases: The heart is normal in size and without pericardial effusion. The lung bases are clear. A fat-containing Bochdalek hernia is seen on the right. Liver: The unenhanced liver is normal in size, contour, and attenuation. There is minimal central intrahepatic biliary ductal dilatation. Gallbladder: Surgically absent and clips in the gallbladder fossa. Spleen: Normal in size and attenuation. Pancreas: Unremarkable. Adrenal glands: Unremarkable. Kidneys: The unenhanced kidneys are normal in size. There is a 13 mm obstructing calculus at the left ureteropelvic junction seen on image #160. This causes moderate left hydronephrosis, with associated left-sided perinephric stranding. There are at least 9 additional nonobstructing left renal calculi which measure up to 12 mm. There are at least 2 nonobstructing right renal calculi which measure up to 2 mm. No right ureteral stone is seen and there is no right-sided hydronephrosis. A 1.7 cm cyst is noted on the left. Abdominal vasculature: The abdominal aorta is normal in course and caliber. Bowel: There are scattered colonic diverticula without CT evidence of acute diverticulitis. No bowel obstruction is seen. The appendix is well-visualized and normal. Peritoneum: There is no intraperitoneal free air or abdominal ascites. There is a fat-containing umbilical hernia. Lymphadenopathy: None. Pelvic viscera: The bladder is decompressed and grossly unremarkable. The uterus is surgically absent. No adnexal lesion is seen. Skeletal structures: The skeletal structures are osteopenic. There is moderate lumbosacral spondylosis as well as mild scoliosis. No lytic or blastic lesions are seen. IMPRESSION: 1. There is a 13 mm obstructing calculus at the left ureteropelvic junction. This causes moderate left hydronephrosis. 2. Additional bilateral nonobstructing renal calculi as above. 3. Additional findings as above. ACT 112: Negative or not required by law. Electronically signed by: Agustin Gee M.D. 12/09/2022 7:56 PM Retrograde Pyelogram 02/04/23 00:00 FL retrograde includes kub CLINICAL HISTORY: Stent placementleft hydronephrosis COMPARISON STUDY: CT 12/09/2022 FLUOROSCOPY TIME: 7.3 seconds FLUOROSCOPY IMAGES: 1 EXPOSURE DOSE: 1.44 mGy FINDINGS: Proximal portion of a left ureteral stent appears to be in satisfactory positioning. Mild left-sided hydronephrosis redemonstrated with probable calculus within the left renal pelvis. Distal portion of the stent was not imaged. IMPRESSION: Fluoroscopic assistance as above. ACT 112: Negative or not required by law. Electronically signed by: Grupo Sigala M.D. 12/10/2022 8:51 AM Hospital Course (1) Acute flank pain: Patient was hospitalized due to acute left flank pain that was found to be due to a 13 mm obstructing ureteral stone that was also causing hydronephrosis. She was seen in consult by urology who started Flomax and kept NPO for possible cystoscopy. Decision was made to proceed with OR for stent placement after being seen by urologist. Dr. Gipson performed cystoscopy with left retrograde pyelogram and ureteral stent placement on 12/10. The tolerated the procedure well without complications. She was transported back to her room on med/surg unit. She was able to eat lunch. Reported some residual soreness but otherwise was feeling well. Will plan to discharge patient home today as she is medically and hemodynamically stable. She will be contacted by urology office with date and time of her follow up appointment. Rx sent for Pyridium and Flomax to be taken as directed. Above plan of care has been d/w Dr. Dinero who is in agreement with aforementioned. Total Time Total Time Spent Total Time Spent (In Minutes): <30 minutes Discharge Plan Discharge Items Patient Disposition: Home - Self-Care Reason For Visit: 13MM L UPJ STONE WITH L HYDRO Discharge Diagnosis: kidney stone causing obstruction Activity: Resume your previous activity Non-emergency contact: Primary Care Provider and Urologist Call non-emergency contact if: you have any medication questions Follow-up/Referrals: Donaldo Hsieh MD [Primary Care Provider] - Diet: Regular Addtl Attending Provider Instructions: You were hospitalized due to a kidney stone that was causing a blockage in your left ureter (the tube that connects your kidney to your bladder). You were taken to the operating room where you had a stent placed and stone treatment. You will be discharged on Pyridium 100mg which you can take three times per day as needed for burning/pain when you void for the next 2 days. You are also being prescribed Flomax 0.4mg daily. This medication will help expel remaining stones. You may taken Tylenol or Motrin as needed for discomfort. Make sure you are drinking plenty of water. No driving for the next 24 hours due to receiving anesthesia. Dr. Gipson's office will contact you with a date and time for your follow up appointment. If you have any questions, please feel free to contact the nonemergency number listed on your discharge paperwork. In the event of a medical emergency, call 911. Pending Studies at Discharge: No Stand-Alone Forms: My [facility] RSens, Smoking Cessation Medications and DC Order Prescriptions: New tamsulosin 0.4 mg Capsule 0.4 mg PO QAM Qty: 14 0RF phenazopyridine [Pyridium] 100 mg tablet 100 mg PO TID PRN (Reason: pain) Qty: 6 0RF Continued metoprolol succinate 25 mg tablet extended release 24 hr 25 mg PO HS Qty: 90 3RF bupropion HCl 150 mg tablet extended release 24 hr 150 mg PO DAILY Qty: 90 1RF naltrexone 50 mg tablet 50 mg PO DAILY Qty: 30 1RF topiramate 25 mg tablet 75 mg PO HS Qty: 270 0RF zolmitriptan [Zomig] 5 mg tablet 5 mg PO .COMPLEX PRN (Reason: migraine headache) Qty: 9 5RF Rx Instructions: take 1 tab at onset of headache; if no relief may repeat 1 tab in 2hr, limit 2-3 days a week fluticasone propionate 50 mcg/actuation spray,suspension 2 spray intranasal DAILY PRN (Reason: Allergy Symptoms) Rx Instructions: administer into each nostril cetirizine [Zyrtec] 10 mg Tablet 10 mg PO QPM PRN (Reason: Congestion) estradiol 0.025 mg/24 hr patch weekly 1 patch transdermal WK Rx Instructions: CHANGES ON FRIDAYS. Reyvow 100 mg tablet 100 mg PO DIRECTED PRN (Reason: migraine) Discharge Orders: Discharge Order (Routine); Ordered 12/10/22 Ordered By: Marilu Serrano Admission Data Admit Date/Time: 02/03/23 22:37 Attending Provider: Mike Dinero Admit Provider: Jay Schultz Primary Care Provider: Donaldo Hsieh Other Providers: Jay Schultz ; Sammy Gipson. Coding Level of Care Code HOSP INP/OBS DISCH 30 MIN/LESS Diagnoses Acute flank pain R10.9
--- NOTE | 2022-12-10 13:10 | Electrocardiogram Report ---
Test Reason : Blood Pressure : / mmHG Vent. Rate : 063 BPM Atrial Rate : 063 BPM P-R Int : 160 ms QRS Dur : 080 ms QT Int : 384 ms P-R-T Axes : 051 -31 -49 degrees QTc Int : 392 ms Poor data quality, interpretation may be adversely affected Normal sinus rhythm Left axis deviation Septal infarct , age undetermined Abnormal ECG When compared with ECG of 03-JUN-2019 12:30, Left bundle branch block is no longer Present Septal infarct is now Present Confirmed by Juan Greenwood ([id number]) on 12/10/2022 1:10:34 PM Referred By: REFERRED SELF Confirmed By:Juan Greenwood
[2022-12-10] MEDS ORDERED: METOPROLOL SUCC 25MG EXT REL TAB PO SCH (21:00)
[2022-12-10] MEDS ORDERED: TOPIRAMATE 25 MG TAB PO SCH (21:00)
--- NOTE | 2022-12-14 10:46 | Coding Query ---
CODING QUERY To promote full compliance with coding requirements relating to patient care, provider participation is requested in all cases of hand upper and bottom lacer uncertainty. Please assist us with the question(s) below: Coding Question(s): Cardiomyopathy is listed in the patient history on the ER, H&P, Urology Consultation and Anesthesia Consultation. Please specify below, in your clinical opinion, regarding Cardiomyopathy: ( xx ) Cardiomyopathy was monitored during this admission ( ) Cardiomyopathy was Not monitored during this admission ( ) Other: Please Specify Physician's Response(s): Thank you Aurora Salazar Principal Diagnosis: "that condition established after study, to be chiefly responsible for occasioning the admission of the patient to the hospital for care." Co-Existing Principal Diagnosis: "when two or more diagnoses equally meet the criteria for principal diagnosis as determined by the circumstances of admission, diagnostic work up, and/or therapy provided, and the Alphabetic Index, Tabular List, or another coding guideline does not provide sequencing direction, any one of the diagnoses may be sequenced first." "When the physician has documented what appears to be a current diagnosis in the body of the record, but has not included the diagnosis in the final diagnostic statement, the physician should be asked whether the diagnosis should be added." ([facility] 2 QTR90. p3-4) MISA
== END 2022-12-10 15:21 | disposition home or self-care (01) | DRG 660 ==
LOC: ED 17:13 → 3N 22:37 → SUATTDRO 22:37 → 3N 23:11